=== PATIENT | male | born 1975 | race Two or more races ===

== ENCOUNTER 2023-07-31 13:06 | Outpatient (AMB) | payer MEDICAID, SELFPAY ==
--- NOTE | 2023-07-31 13:07 | A.OFFVIS_ITS ---
Intake Intake Visit Reasons: BPH Intake Note: NEW Patient presents today to established treatment for BPH: Meds- None Allergies to Antibiotic- No Known Allergies Blood Thinner- None Post Void Residual: 0 mL Ophthalmic Aide Required: Yes Ophthalmic Aide Language: Web Site Project Manager Name: THADDEUS Flores/JAVIER VERDIN Information Interpreted: non-clinical & clinical Accompanied by: Self / Same As Patient Allergies No Known Allergies Allergy (Verified 07/31/23 13:47) Medication List - Last Reconciled 07/31/23 by Donovan Field MD atorvastatin 40 mg PO DAILY ezetimibe 10 mg PO DAILY HPI HPI Comments History of Present Illness Details Helder is a 48-year-old Italian-speaking male who is here for evaluation for BPH symptoms. Certified conference interpreter present. AUA BPH symptom score 17/35 Comorbidity-nicotine dependence. The patient complains of nocturia x3, feeling that he has not emptying his bladder well, denies dysuria, Denies, family history of prostate cancer. I have discussed avoiding dietary bladder irritants, including to cut back on caffeine usage Review of consult referral: Labs PSA 05/27/23 ---1.1 ng/mL I have discussed workup to include evaluation of the urinary tract with renal and bladder ultrasound. UA- leukocytes negative, blood 10 Rigoberto Bladder scan PVR 0 mL Plan: Ultrasound kidneys bladder follow-up office cystoscopy. Urine for cytology. Flomax 0.4 mg daily in the evening. [facility] Medical History Enlarged prostate Restless leg Snoring Hypertriglyceridemia Surgical History No pertinent past surgical history Family History Father No family history of cancer Mother No problems noted. Social History Alcohol intake: current Alcohol intake frequency: does not drink Patient Tobacco Use Status: Current someday Tobacco user Questionnaire AUA Symptom Score AUA Incomplete emptying - It does not feel like I empty my bladder all the way.: 5 - Almost always Frequency - I have to go again less than two hours after I finish urinating.: 3 - About half the time Intermittency - I stop and start again several times when I urinate.: 2 - Less than half the time Urgency - It is hard to wait when I have to urinate.: 1 - Less than 1 time in 5 Weak stream - I have a weak urinary stream.: 2 - Less than half the time Straining - I have to push or strain to begin urination.: 1 - Less than 1 time in 5 Nocturia - I get up to urinate after I go to bed until the time I get up in the morning.: 3 times AUA Symptom Score: 17 Quality of life due to urinary symptoms: If you were to spend the rest of your life with your urinary condition the way it is now, how would you feel about that?: Terrible Source: Sonu DAVILA, Guera CUI Jr, O'Judi MP, et al, and the Measurement Committee of the [place] [employer]. The [place] [employer] symptom index for benign prostatic hyperplasia. J Urol. 1992; 148: 5583-7040. Copyright 1992 [place] [employer] Review of Systems Const All systems reviewed & are unremarkable except as noted in HPI and below Reports no additional complaints Eyes Reports no additional complaints ENT Reports no additional complaints Card Denies dyspnea Resp Denies cough and Denies dyspnea GI Reports no additional complaints Musc Reports no additional complaints Skin/Breast Denies rash and Denies unusual bruising Neuro Reports no additional complaints Psych Reports no additional complaints Endo Reports no additional complaints Krishna/Lymph Reports no additional complaints Aller/Immun Reports no additional complaints Physical Exam Const General: healthy appearing, no acute distress and well developed Orientation/consciousness: patient oriented x3 HEENT Head: Yes normocephalic and Yes atraumatic Eyes Conjunctivae: conjunctivae normal Neck Neck: Yes normal visual inspection Chest Chest palpation & inspection: normal inspection of the chest Resp Effort & Inspection: normal respiratory effort Cardio Rate: regular rate GI Inspection: Yes normal to inspection Palpation (GI): Soft to palpation Skin General skin exam: no rashes or lesions noted Neuro General: patient oriented x3 Extrem General: No pedal edema Psych Appearance: grossly normal Affect: normal affect Results AMB Urinalysis, Automated UA Leukoctes 0 Jessy/uL Last Edit by THADDEUS Flores on 07/31/23 14:15 UA Nitrite Negative Last Edit by THADDEUS Flores on 07/31/23 14:15 UA Urobilinogen 0.2 mg/dL Last Edit by THADDEUS Flores on 07/31/23 14:1 5 UA Protein 15 mg/dL Last Edit by THADDEUS Flores on 07/31/23 14:15 UA pH 7.0 Last Edit by THADDEUS Flores on 07/31/23 14:15 UA Blood 10 Rigoberto/uL Last Edit by THADDEUS Flores on 07/31/23 14:15 UA Specific [place] 1.015 Last Edit by THADDEUS Flores on 07/31/23 14: 15 UA Ketone Negative Last Edit by THADDEUS Flores on 07/31/23 14:15 UA Bilirubin 0 mg/dL Last Edit by THADDEUS Flores on 07/31/23 14:15 UA Glucose 0 mg/dL Last Edit by THADDEUS Flores on 07/31/23 14:15 Results Reviewed Results Reviewed: Laboratory Last Values Urine pH (Auto) 7.0 07/31/23 14:14 Specific [place] (Auto) 1.015 07/31/23 14:14 Urine Protein (Auto) 15 mg/dL 07/31/23 14:14 Glucose (UA)(Auto) 0 mg/dL 07/31/23 14:14 Urine Ketones (Auto) Negative 07/31/23 14:14 Urine Blood (Auto) 10 Rigoberto/uL 07/31/23 14:14 Urine Nitrite (Auto) Negative 07/31/23 14:14 Urine Bilirubin (Auto) 0 mg/dL 07/31/23 14:14 Urine Urobilinogen (Auto) 0.2 mg/dL 07/31/23 14:14 Leukocyte Esterase (Auto) 0 Jessy/uL 07/31/23 14:14 Assessment & Plan Assessment & Plan (1) BPH loc w urin obs/LUTS: Code(s): N40.1 - Benign prostatic hyperplasia with lower urinary tract symptoms (2) Microscopic hematuria: Code(s): R31.29 - Other microscopic hematuria (3) Nicotine dependence: Code(s): F17.200 - Nicotine dependence, unspecified, uncomplicated Plan Flomax. Discussed medication side effects retrograde ejaculation, dizziness. Patient has a call if dizziness or any other allergies occur. Renal bladder ultrasound. Follow-up office cystoscopy Urine cytology Orders: Orders AMB Urinalysis Automated Today Z13.9 - Encounter for screening, unspecified AMB Post Void Residual by ultrasound Today N39.8 - Other specified disorders of urinary system US retroperitoneal comp Today N40.1 - Benign prostatic hyperplasia with lower urinary tract symptoms Medications: New tamsulosin (Flomax) 0.4 mg PO BEDTIME 90 caps 1RF Patient Instructions: The patient had an opportunity to ask questions regarding treatment plan. All questions were answered. Laboratory results were discussed and reviewed in detail. No major barriers to understanding were identified. The patient expressed understanding and agreement with the above treatment plan. The patient is aware they should contact our office by phone for worsening of their current condition or the appearance of new symptoms. Compliance is encouraged with any medications and followup testing that is ordered. It is a privilege to be allowed the opportunity to participate in the urologic care of your patient. If you have any questions or concerns regarding treatment for the above conditions please do not hesitate to contact me. The office telephone contact is [phone]. This note is constructed in part using voice recognition software. While every effort has been made to ensure accuracy radiology transcriptionist errors may have been included. Yours sincerely, Donovan Field MD Quality Reporting (2019) Benign Prostatic Hyperplasia ([facility] 771) AUA symptom score: 17 Quality of life due to urinary symptoms: If you were to spend the rest of your life with your urinary condition the way it is now, how would you feel about that?: Terrible Coding Level of Care Code New Pt Level 4 (86872) Diagnoses BPH loc w urin obs/LUTS N40.1 Microscopic hematuria R31.29 Nicotine dependence F17.200
== END 2023-07-31 14:06 | disposition home or self-care (01) ==
PROVIDERS: PCP Pediatrics; Visit Provider Urology
DX: N40.1 Benign prostatic hyperplasia with lower urinary tract symptoms (principal); R31.29 Other microscopic hematuria; F17.200 Nicotine dependence, unspecified, uncomplicated; Z13.9 Encounter for screening, unspecified
CPT/HCPCS: 99204

== ENCOUNTER 2023-07-31 13:06 | Outpatient (REF) | payer OTHER, SELFPAY ==
[2023-07-31 17:00] LABS: Urine Cytology See Pathology rpt
== END 2023-07-31 13:07 | disposition home or self-care (01) ==
LOC: HO.LAB 13:06
PROVIDERS: PCP Pediatrics; Visit Provider Urology
DX: R31.29 Other microscopic hematuria (principal); N40.1 Benign prostatic hyperplasia with lower urinary tract symptoms; F17.200 Nicotine dependence, unspecified, uncomplicated; Z71.6 Tobacco abuse counseling
CPT/HCPCS: 81003; 88112; 99202

== ENCOUNTER 2023-11-14 11:18 | Outpatient (REF) | payer OTHER, SELFPAY ==
--- NOTE | ~2023-11-14 | US_ITS ---
EXAMINATION: US RETROPERITONEAL COMPLETE (RENAL) CLINICAL INFORMATION: Benign prostatic hyperplasia with lower urinary tract symptoms. COMPARISON: None available. TECHNIQUE: Real-time imaging of the kidneys and bladder. FINDINGS: RIGHT KIDNEY: 10.7 x 4.8 x 5.5 cm (SAG x AP x TRV). The kidney is normal in size, contour, and echogenicity. Renal cortical thickness is normal. No calculi or focal parenchymal lesions. No hydronephrosis. LEFT KIDNEY: 10.5 x 5.1 x 4.7 cm (SAG x AP x TRV). The kidney is normal in size, contour, and echogenicity. Renal cortical thickness is normal. No calculi or focal parenchymal lesions. No hydronephrosis. There are echogenic foci at the lower pole, which do not meet formal ultrasound criteria for calculi. BLADDER: Well distended and normal. Bilateral ureteral jets are demonstrated. Prevoid bladder volume is 286 mL. Postvoid bladder volume is 46 mL. The prostate volume is 22.9 mL. US/US retroperitoneal comp IMPRESSION: Unremarkable examination.
== END 2023-11-14 11:19 | disposition home or self-care (01) ==
LOC: HO.US 11:18
PROVIDERS: PCP Pediatrics; Visit Provider Urology
DX: N40.1 Benign prostatic hyperplasia with lower urinary tract symptoms (principal)
CPT/HCPCS: 76770

== ENCOUNTER 2023-11-20 14:11 | Outpatient (AMB) | payer OTHER, SELFPAY ==
--- NOTE | 2023-11-20 14:21 | MHC.OFFVIS ---
Intake Visit Reasons: cysto/US Intake Note: Patient presents today for a CYSTOSCOPY Procedure: Meds: None Allergies to Antibiotic: No Known Allergies Blood Thinner: None Urinalysis test clear for Cysto? Disposable Uro-G HD Cystoscope Cannula: Lot: [id number] Exp: 06/25/2026 Hydrotreater Operator Required: Yes Hydrotreater Operator Language: Golf Ball Winder Name: Luisana Randolph, THADDEUS/JAVIER SPANI Information Interpreted: non-clinical & clinical Spot Machine Operator: Spot Machine Operator Present Accompanied by: Self / Same As Patient Allergies No Known Allergies Allergy (Verified 11/20/23 14:22) Medication List - Last Reconciled 11/20/23 by Donovan Field MD atorvastatin 40 mg PO DAILY ezetimibe 10 mg PO DAILY tamsulosin (Flomax) 0.4 mg PO BEDTIME HPI Comments Details: 11/20/23--Helder is here for office cystoscopy. Certified middle school spanish teacher present. He was last seen on 07/31/23 and tamsulosin was ordered for BPH symptoms, he states medication is helping. He completed renal ultrasound, report is pending. Urine cytology 07/31/2023 was negative for malignant cells. Cystoscopy findings: multi-focal erythematous flattened irregularities. Discussed further evaluation with cysto/bladder biopsies. Consent obtained. Review of chart: 07/31/23--Helder is a 48-year-old Polish-speaking male who is here for evaluation for BPH symptoms. Certified certified court/medical interpreter present. AUA BPH symptom score 17/35. The patient complains of nocturia x3, feeling that he has not emptying his bladder well, denies dysuria, Denies, family history of prostate cancer. Comorbidity-nicotine dependence. I have discussed avoiding dietary bladder irritants, including to cut back on caffeine usage. I have discussed workup to include evaluation of the urinary tract with renal and bladder ultrasound, FU cystoscopy Review of consult referral: Labs PSA 05/27/23 ---1.1 ng/mL. UA- leukocytes negative, blood 10 Rigoberto Bladder scan PVR 0 mL PFSH Medical History Enlarged prostate Restless leg Snoring Hypertriglyceridemia Surgical History Hx of cystoscopy No pertinent past surgical history Family History Father No family history of cancer Mother No problems noted. Social History Alcohol intake: current Alcohol intake frequency: does not drink Patient Tobacco Use Status: Current someday Tobacco user Review of Systems Const All systems reviewed & are unremarkable except as noted in HPI and below Reports no additional complaints Eyes Reports no additional complaints ENT Reports no additional complaints Card Reports no additional complaints Resp Reports no additional complaints GI Reports no additional complaints Reports as per HPI Musc Reports no additional complaints Skin/Breast Reports system reviewed and no additional complaints, except as documented Neuro Reports no additional complaints Psych Reports no additional complaints Endo Reports no additional complaints Krishna/Lymph Reports no additional complaints Aller/Immun Reports no additional complaints Office Procedures Cystoscopy Consent Discussed risk and benefit or proposed procedure with the patient. Information consent for procedure given to the patient. Discussed technical aspects, risks, benefits and alternatives in full. Addressed all of the patient's questions and concerns regarding the procedure. The patient demonstrated knowledge and understanding. They wish to proceed with this procedure. Preparation The patient was prepped in the usual manner. A communications writer was present and in the room. Genitalia was prepped with betadine solution in a sterile manner. Lidocaine Jelly 2% was placed into the urethra and 16Fr flexible Olympus cystoscope was inserted into the meatus after adequate lubrication. Procedure Time out per protocol performed. Bladder Inspection Bladder Inspection: The bladder was inspected in its entirety with utilization retroflexion displaying: Tumor(s): Multifocal erythematous changes noted Trabeculation: NA Mucosal Erthema: Present Orifices: normal shape and position Urethra: normal Cystoscopy findings: prostatic urethra bilobar enlargement, prominent median lobe. Multifocal erythematous changes noted [id number] DISPOSABLE SCOPE URO-G FLEXIBLE SCOPE Procedure code (CPT) selection complete Office Meds lidocaine HCl 2 % mucosal jelly in applicator Performing Provider: Donovan Field MD Performing Location[facility] [place] [facility] Administered by: Alejo Banks LPN on 11/20/23 14:32 Dose Route Admin Location Dispensed Lot Number Expiration Date [facility] Human Resources Talent Manager 10 mL intra-urethral 20 mL naproxen 500 mg tablet Performing Provider: Donovan Field MD Performing Location: [facility] [place] [facility] Administered by: Alejo Banks LPN on 11/20/23 14:32 Dose Route Admin Location Dispensed Lot Number Expiration Date [facility] Human Resources Talent Manager 500 mg PO 1 tab ciprofloxacin HCl 500 mg tablet Performing Provider: Donovan Field MD Performing Location: [facility] [place] [facility] Administered by: Alejo Banks LPN on 11/20/23 14:32 Dose Route Admin Location Dispensed Lot Number Expiration Date [facility] Human Resources Talent Manager 500 mg PO 1 tab Results AMB Urinalysis, Automated UA Leukoctes 0 Jessy/uL Last Edit by THADDEUS Flores on 11/20/23 14:35 UA Nitrite Negative Last Edit by THADDEUS Flores on 11/20/23 14:35 UA Urobilinogen 0.2 mg/dL Last Edit by THADDEUS Flores on 11/20/23 14:35 UA Protein 0 mg/dL Last Edit by THADDEUS Flores on 11/20/23 14:35 UA pH 6.0 Last Edit by THADDEUS Flores on 11/20/23 14:35 UA Blood 25 Rigoberto/uL Last Edit by THADDEUS Flores on 11/20/23 14:35 1+ Luisana Randolph 11/20/23 14:35 UA Specific [place] 1.015 Last Edit by THADDEUS Flores on 11/20/23 14:35 UA Ketone Negative Last Edit by THADDEUS Flores on 11/20/23 14:35 UA Bilirubin 0 mg/dL Last Edit by THADDEUS Flores on 11/20/23 14:35 UA Glucose 0 mg/dL Last Edit by THADDEUS Flores on 11/20/23 14:35 Results Reviewed Results Reviewed: Laboratory Last Values Urine pH (Auto) 6.0 11/20/23 14:23 Specific [place] (Auto) 1.015 11/20/23 14:23 Urine Protein (Auto) 0 mg/dL 11/20/23 14:23 Glucose (UA)(Auto) 0 mg/dL 11/20/23 14:23 Urine Ketones (Auto) Negative 11/20/23 14:23 Urine Blood (Auto) 25 Rigoberto/uL 11/20/23 14:23 Urine Nitrite (Auto) Negative 11/20/23 14:23 Urine Bilirubin (Auto) 0 mg/dL 11/20/23 14:23 Urine Urobilinogen (Auto) 0.2 mg/dL 11/20/23 14:23 Leukocyte Esterase (Auto) 0 Jessy/uL 11/20/23 14:23 Assessment & Plan Assessment & Plan (1) BPH loc w urin obs/LUTS: Code(s): N40.1 - Benign prostatic hyperplasia with lower urinary tract symptoms Category: Medical (2) Microscopic hematuria: Code(s): R31.29 - Other microscopic hematuria Category: Medical (3) Nicotine dependence: Code(s): F17.200 - Nicotine dependence, unspecified, uncomplicated Category: Medical (4) Bladder disorder, unspecified: Code(s): N32.9 - Bladder disorder, unspecified Category: Medical Plan Outpatient Cystoscopy bladder biopsy Orders: Orders AMB Urinalysis Automated Today Z13.9 - Encounter for screening, unspecified AMB Cystoscopy Today F17.200 - Nicotine dependence, unspecified, uncomplicated, N40.1 - Benign prostatic hyperplasia with lower urinary tract symptoms, R31.29 - Other microscopic hematuria Patient Instructions: The patient had an opportunity to ask questions regarding treatment plan. The patient expressed understanding and agreement with the above treatment plan. The patient is aware they should contact our office by phone for worsening of their current condition or the appearance of new symptoms. Compliance is encouraged with any medications and followup testing that is ordered. It is a privilege to be allowed the opportunity to participate in the urologic care of your patient. If you have any questions or concerns regarding treatment for the above conditions please do not hesitate to contact me. The office telephone contact is [phone]. This note is constructed in part using voice recognition software. While every effort has been made to ensure accuracy grove worker errors may have been included. Yours sincerely, Donovan Field MD Coding Level of Care Code Est Pt Level 3 (17841) Diagnoses BPH loc w urin obs/LUTS N40.1 Microscopic hematuria R31.29 Nicotine dependence F17.200 Bladder disorder, unspecified N32.9 CPT Codes Cystoscopy - CPT: 74929-[id number] ([id number])
== END 2023-11-20 15:03 | disposition home or self-care (01) ==
PROVIDERS: PCP Pediatrics; Visit Provider Urology
DX: N40.1 Benign prostatic hyperplasia with lower urinary tract symptoms (principal); R31.29 Other microscopic hematuria; F17.200 Nicotine dependence, unspecified, uncomplicated; N32.9 Bladder disorder, unspecified; Z13.9 Encounter for screening, unspecified
CPT/HCPCS: 52000; 99213

== ENCOUNTER → 2023-11-20 14:11 | Outpatient (BNVA) | payer OTHER, SELFPAY | PROVIDERS: PCP Pediatrics; Visit Provider Urology | DX: R31.29 Other microscopic hematuria (principal); N40.1 Benign prostatic hyperplasia with lower urinary tract symptoms; N13.8 Other obstructive and reflux uropathy; N32.9 Bladder disorder, unspecified; F17.200 Nicotine dependence, unspecified, uncomplicated | CPT/HCPCS: 52000; 81003; 99212 ==

== ENCOUNTER 2023-12-10 07:33 | Day surgery (SDC) | payer OTHER, SELFPAY ==
--- NOTE | 2023-12-09 09:39 | HO.ANESPROP2 ---
Documented by User: Shikha Clemons NP 12/09/23 09:39 HPI - Anesthesia Eval Consult details Narrative: 48yo M for Cystoscopy & Bladder Biopsy with fulguration PMFSH Active Problems Active Problems: All Active Problems Bladder disorder, unspecified (Acute) Nicotine dependence (Acute) Microscopic hematuria (Acute) BPH loc w urin obs/LUTS (Acute) Past Medical History Medical History Enlarged prostate Restless leg Snoring Hypertriglyceridemia Family History Family History Father No family history of cancer Mother No problems noted. Surgical History Surgical History Hx of cystoscopy No pertinent past surgical history Social History Social History Alcohol intake: current Alcohol intake frequency: holidays/special occasions only Patient Tobacco Use Status: Former Tobacco user Are you DNR?: No Advance Directives: No Advance Directives Information Provided: Yes Meds Allergies Allergy/AdvReac Type Severity Reaction Status Date / Time No Known Allergies Allergy Verified 11/20/23 14:22 Home Medications ?Medication ?Instructions ?Recorded ?Confirmed ?Last Taken ?Type atorvastatin 40 mg tablet 40 mg PO DAILY 07/31/23 11/20/23 Unknown History ezetimibe 10 mg tablet 10 mg PO DAILY 07/31/23 11/20/23 Unknown History Assessment and Plan Assessment Anesthesia Assessment: Chart Reviewed Documented by User: Jacklyn Taylor MD 12/10/23 08:17 PMFSH Past Medical History Medical History Enlarged prostate Restless leg Snoring Hypertriglyceridemia Family History Family History Father No family history of cancer Mother No problems noted. Surgical History Surgical History Hx of cystoscopy No pertinent past surgical history History of Problems with Anesthesia: No Social History Social History Alcohol intake: current Alcohol intake frequency: holidays/special occasions only Patient Tobacco Use Status: Former Tobacco user Are you DNR?: No Advance Directives: No Advance Directives Information Provided: Yes Meds Allergies Allergy/AdvReac Type Severity Reaction Status Date / Time No Known Allergies Allergy Verified 11/20/23 14:22 Home Medications ?Medication ?Instructions ?Recorded ?Confirmed ?Last Taken ?Type atorvastatin 40 mg tablet 40 mg PO DAILY 07/31/23 11/20/23 Unknown History ezetimibe 10 mg tablet 10 mg PO DAILY 07/31/23 11/20/23 Unknown History Exam Airway Mallampati Class: III TM Dist: >3cm Neck ROM: Full Loose/Missing/Broken Teeth: No Heart: RRR Lungs: CTA Assessment and Plan Assessment Anesthesia Assessment: Anesthesia Plan Discussed Final Anesthetic Review History of Problems with Anesthesia: No NPO: Yes ASA Class: II Final Preanesthetic Review: Meds/Allgs Chart Reviewed, Consent Obtained/Reviewed and Anes Risks/Benef Reviewed Patient Risk: Low Procedure Risk: Low Anesthetic Plan Anesthetic Plan: GA Disposition: Standard PACU
[2023-12-10] VITALS (7 sets, daily range): BP systolic 97–124; BP diastolic 60–76; PULSE 61–76; RESP 17–18; TEMP 36.1–36.8; O2SAT 94–97; BMI 33.1
[2023-12-10] MEDS: Lactated Ringers 1,000 ML 100 ML IVCONT (08:01)
--- NOTE | 2023-12-10 08:03 | MHC.SHP ---
Pre-Procedural Eval Section A - 24 Hr Update-Section A only Date of Service: 12/10/23 The patient is an INPATIENT: No The patient has been examined within 24 hours of the surgical procedure. The History & Physical has been completed within 30 days and I have reviewed it.: Yes Section B - Complete if H&P > 30 days Chief Complaint: Other microscopic hematuria Allergies: Allergies Allergy/AdvReac Type Severity Reaction Status Date / Time No Known Allergies Allergy Verified 11/20/23 14:22 Plan Diagnosis/Plan: Unchanged I have reviewed the history and physical and performed a pertinent physical examination on my patient. No changes have occurred unless specified. Cystoscopy. Bladder biopsies, Fulguration. Discussed risks to include but not limited to, blood in the urine, burning with urination, urgency. Time Spent With Patient Time: Total time managing care of this patient today ____ minutes.
--- NOTE | 2023-12-10 09:10 | W.PM.OPN ---
Operative Note Operative Note Date of Service: 12/10/23 Narrative: PREOP DIAGNOSIS: Microscopic hematuria, urinary urgency POSTOP DIAGNOSIS: Interstitial cystitis, microscopic hematuria, PROCEDURE: CYSTOSCOPY HYDRODISTENTION Anethesia: General Surgeon: Dr. Donovan Field Indications: Helder is a 48-year-old gentleman who has been evaluated due to microscopic hematuria. He complained of irritative urinary symptoms of urgency. Office cystoscopy erythematous changes noted, urine cytology negative for malignancy. Details of procedure: The patient was brought into the operating room placed on the OR table in supine position. 2 g of Ancef IV. General anesthesia was administered. The patient was repositioned into lithotomy position, prepped and draped in the usual sterile fashion. Time-out was done per protocol. A 22 fr cystoscope was placed transurethrally into the bladder. The bulbous urethra was within normal limits. The prostatic urethra was nonobstructive. The right and left ureteral orifices were visualized. The entire bladder was visualized. There were no suspicious bladder lesions seen. During filling of the bladder there was noted to be glomerulations. After draining the bladder, terminal hematuria was noted, the bladder was then filled with sterile water at 80 cm of water pressure under gravity. The bladder was distended for 2 minutes. Bladder capacity measured 350 mL. Revisualization of the bladder, noted moderate glomerulations on all quadrants of the bladder. No Perez ulcerations noted. The bladder was refilled with sterile water again at 80 cm of water pressure under gravity. The bladder was distended for 4 minutes. The fluid was drained from the bladder and measured 400 mL. The cystoscope was removed. 2% lidocaine urojet was passed transurethrally, 20 mL. The patient was brought out of anesthesia and taken to recovery in stable condition. Complications: None Drains: none
[2023-12-10] MEDS: Phenazopyridine HCL 200 MG TABLET PO (09:37)
[2023-12-10] MEDS: hydrOXYzine HCL 25 MG TABLET PO (09:37)
== END 2023-12-10 10:49 | disposition home or self-care (01) ==
PROVIDERS: PCP Pediatrics; Visit Provider Urology
PROC: (CPT 52260; principal; 2023-12-10 08:50)
DX: N30.11 Interstitial cystitis (chronic) with hematuria (principal); N40.0 Benign prostatic hyperplasia without lower urinary tract symptoms; R31.29 Other microscopic hematuria; E78.1 Pure hyperglyceridemia; Z79.899 Other long term (current) drug therapy; F17.200 Nicotine dependence, unspecified, uncomplicated
CPT/HCPCS: 52260; J0690; J1100; J1885; J2250; J2405; J2704; J3010

== ENCOUNTER → 2023-12-10 07:33 | Outpatient (BNV) | payer OTHER, SELFPAY | PROVIDERS: PCP Pediatrics; Visit Provider Urology | DX: R31.29 Other microscopic hematuria (principal) | CPT/HCPCS: 52260 ==

== ENCOUNTER 2023-12-23 13:45 | Outpatient (AMB) | payer OTHER, SELFPAY ==
--- NOTE | 2023-12-23 14:16 | MHC.OFFVIS ---
Intake Visit Reasons: Bladder biopsy results Intake Note: Patient is present for bladder biopsy results Urology Medication:phenazopyridine,oxycodone-acetaminophen,tamsulosin Antibiotic Allergy:none Blood Thinner:none Electric Lineman Required: No Allergies No Known Allergies Allergy (Verified 12/23/23 14:19) HPI Comments Details: 12/23/2023--s/p cystoscopy hydrodistension 12/10/23-- bladder capacity 400 mL, moderate glomerulations, findings c/w interstitial cystitis. No bladder biopsies indicated. Pt states urinary urgency is improved. Will place on tamsulosin. Review of chart: 11/20/23--Helder is here for office cystoscopy. Certified motor vehicle parts interpreter present. He was last seen on 07/31/23 and tamsulosin was ordered for BPH symptoms, he states medication is helping. He completed renal ultrasound, report is pending. Urine cytology 07/31/2023 was negative for malignant cells. Cystoscopy findings: multi-focal erythematous flattened irregularities. Discussed further evaluation with cysto/bladder biopsies. Consent obtained. 07/31/23--Helder is a 48-year-old Burundian-speaking male who is here for evaluation for BPH symptoms. Certified interpreter present. AUA BPH symptom score 17/35. The patient complains of nocturia x3, feeling that he has not emptying his bladder well, denies dysuria, Denies, family history of prostate cancer. Comorbidity-nicotine dependence. I have discussed avoiding dietary bladder irritants, including to cut back on caffeine usage. I have discussed workup to include evaluation of the urinary tract with renal and bladder ultrasound, FU cystoscopy Review of consult referral: Labs PSA 05/27/23 ---1.1 ng/mL. UA- leukocytes negative, blood 10 Rigoberto Bladder scan PVR 0 mL PFSH Medical History Enlarged prostate Restless leg Snoring Hypertriglyceridemia Surgical History Hx of cystoscopy No pertinent past surgical history Family History Father No family history of cancer Mother No problems noted. Social History Alcohol intake: current Alcohol intake frequency: holidays/special occasions only Patient Tobacco Use Status: Former Tobacco user Review of Systems Const All systems reviewed & are unremarkable except as noted in HPI and below Reports no additional complaints Eyes Reports no additional complaints ENT Reports no additional complaints Card Reports no additional complaints Resp Reports no additional complaints GI Reports no additional complaints Reports as per HPI Musc Reports no additional complaints Skin/Breast Reports system reviewed and no additional complaints, except as documented Neuro Reports no additional complaints Psych Reports no additional complaints Endo Reports no additional complaints Krishna/Lymph Reports no additional complaints Aller/Immun Reports no additional complaints Assessment & Plan Assessment & Plan (1) BPH loc w urin obs/LUTS: Code(s): N40.1 - Benign prostatic hyperplasia with lower urinary tract symptoms Category: Medical (2) Microscopic hematuria: Code(s): R31.29 - Other microscopic hematuria Category: Medical (3) Nicotine dependence: Code(s): F17.200 - Nicotine dependence, unspecified, uncomplicated Category: Medical (4) Bladder disorder, unspecified: Code(s): N32.9 - Bladder disorder, unspecified Category: Medical Plan tamsulosin 0.4 mg daily Patient Instructions: The patient had an opportunity to ask questions regarding treatment plan. The patient expressed understanding and agreement with the above treatment plan. The patient is aware they should contact our office by phone for worsening of their current condition or the appearance of new symptoms. Compliance is encouraged with any medications and followup testing that is ordered. It is a privilege to be allowed the opportunity to participate in the urologic care of your patient. If you have any questions or concerns regarding treatment for the above conditions please do not hesitate to contact me. The office telephone contact is [phone]. This note is constructed in part using voice recognition software. While every effort has been made to ensure accuracy medical program specialist errors may have been included. Yours sincerely, Donovan Field MD Coding Level of Care Code Est Pt Level 4 (18806) Diagnoses BPH loc w urin obs/LUTS N40.1 Microscopic hematuria R31.29 Nicotine dependence F17.200 Bladder disorder, unspecified N32.9
== END 2023-12-23 15:04 | disposition home or self-care (01) ==
PROVIDERS: PCP Pediatrics; Visit Provider Urology
DX: N40.1 Benign prostatic hyperplasia with lower urinary tract symptoms (principal); R31.29 Other microscopic hematuria; F17.200 Nicotine dependence, unspecified, uncomplicated; N32.9 Bladder disorder, unspecified
CPT/HCPCS: 99213; 99499

== ENCOUNTER → 2023-12-23 13:45 | Outpatient (BNVA) | payer OTHER, SELFPAY | PROVIDERS: PCP Pediatrics; Visit Provider Urology | DX: N40.1 Benign prostatic hyperplasia with lower urinary tract symptoms (principal); R31.29 Other microscopic hematuria; F17.200 Nicotine dependence, unspecified, uncomplicated; N32.9 Bladder disorder, unspecified | CPT/HCPCS: 99212 ==

== ENCOUNTER 2024-08-26 13:45 | Outpatient (AMB) | payer OTHER, SELFPAY ==
--- NOTE | 2024-08-26 12:52 | A.OFFVIS_ITS ---
Intake Visit Reasons: 8M f/u BPH Intake Note: Patient is present for 8 month follow up IC Urology Medication:tamsulosin Antibiotic Allergy:none Blood Thinner:none PVR:19ml Marketing Communication Manager Required: Yes Marketing Communication Manager Name: [id number] Information Interpreted: non-clinical & clinical Allergies No Known Allergies Allergy (Verified 08/26/24 13:53) Medication List - Last Reconciled 08/26/24 by Donovan Field MD atorvastatin 40 mg PO DAILY ezetimibe 10 mg PO DAILY tamsulosin (Flomax) 0.4 mg PO BEDTIME HPI Comments Details: 08/26/24-- Helder is a 49-year-old male presenting for follow-up of interstitial cystitis. The condition was evaluated on 12/10/23 with a cystoscopy hydrodistension that showed moderate glomerulations and a bladder capacity of 400 mg. Initially treated post-procedure with pyridium, the patient now utilizes tamsulosin daily. Improvement is reported to be significant, approximately 85% better overall, though some urinary difficulty persists occasionally. The patient adheres to dietary recommendations and remains informed on follow-up PSA testing due to advancing age. Urinary Symptoms Review - Moderate improvement of urinary urgency and frequency symptoms with tamsulosin daily - Occasional difficulty urinating - Significant overall improvement reported as 85% better - Pyridium discontinued following initial procedure - No current nocturnal symptoms Results - Cystoscopy on 12/10/23 showing moderate glomerulations and bladder capacity of 400 mg, consistent with interstitial cystitis 12/23/2023--s/p cystoscopy hydrodistension 12/10/23-- bladder capacity 400 mL, moderate glomerulations, findings c/w interstitial cystitis. No bladder biopsies indicated. Pt states urinary urgency is improved. Will place on tamsulosin. 11/20/23--Helder is here for office cystoscopy. Certified bull riveter present. He was last seen on 07/31/23 and tamsulosin was ordered for BPH symptoms, he states medication is helping. He completed renal ultrasound, report is pending. Urine cytology 07/31/2023 was negative for malignant cells. Cystoscopy findings: multi-focal erythematous flattened irregularities. Discussed further evaluation with cysto/bladder biopsies. Consent obtained. 07/31/23--Helder is a 48-year-old Frisian-speaking male who is here for evaluation for BPH symptoms. Certified renal dietitian present. AUA BPH symptom score 17/35. The patient complains of nocturia x3, feeling that he has not emptying his bladder well, denies dysuria, Denies, family history of prostate cancer. Comorbidity-nicotine dependence. I have discussed avoiding dietary bladder irritants, including to cut back on caffeine usage. I have discussed workup to include evaluation of the urinary tract with renal and bladder ultrasound, FU cystoscopy Review of consult referral: Labs PSA 05/27/23 ---1.1 ng/mL. UA- leukocytes negative, blood 10 Rigoberto Bladder scan PVR 0 mL PFSH Medical History Enlarged prostate Restless leg Snoring Hypertriglyceridemia Surgical History Hx of cystoscopy No pertinent past surgical history Family History Father No family history of cancer Mother No problems noted. Social History Alcohol intake: current Alcohol intake frequency: holidays/special occasions only Patient Tobacco Use Status: Former Tobacco user Review of Systems Const All systems reviewed & are unremarkable except as noted in HPI and below Reports no additional complaints Eyes Reports no additional complaints ENT Reports no additional complaints Card Reports no additional complaints Resp Reports no additional complaints GI Reports no additional complaints Reports as per HPI Musc Reports no additional complaints Skin/Breast Reports system reviewed and no additional complaints, except as documented Neuro Reports no additional complaints Psych Reports no additional complaints Endo Reports no additional complaints Krishna/Lymph Reports no additional complaints Aller/Immun Reports no additional complaints Office Procedures Post Void Residual Post Residual Void Post Void Residual (PVR): 19 [id number] Void Residual by ultrasound Results AMB Urinalysis, Automated UA Leukoctes 0 Jessy/uL Last Edit by Brianda Talamantes on 08/26/24 14:02 UA Nitrite Negative Last Edit by Brianda Talamantes on 08/26/24 14:02 UA Urobilinogen 3.5 mg/dL Last Edit by Brianda Talamantes on 08/26/24 14:02 UA Protein 1 mg/dL Last Edit by Brianda Talamantes on 08/26/24 14:02 UA pH 6.0 Last Edit by Brianda Talamantes on 08/26/24 14:02 UA Blood 25 Rigoberto/uL Last Edit by Brianda Talamantes on 08/26/24 14:02 UA Specific [place] 1.015 Last Edit by Brianda Talamantes on 08/26/24 14:02 UA Ketone Negative Last Edit by Brianda Talamantes on 08/26/24 14:02 UA Bilirubin 0 mg/dL Last Edit by Brianda Talamantes on 08/26/24 14:02 UA Glucose 0 mg/dL Last Edit by Brianda Talamantes on 08/26/24 14:02 Results Reviewed Results Reviewed: Laboratory Last Values Urine pH (Auto) 6.0 08/26/24 15:38 Specific [place] (Auto) 1.015 08/26/24 15:38 Urine Protein (Auto) 1 mg/dL 08/26/24 15:38 Glucose (UA)(Auto) 0 mg/dL 08/26/24 15:38 Urine Ketones (Auto) Negative 08/26/24 15:38 Urine Blood (Auto) 25 Rigoberto/uL 08/26/24 15:38 Urine Nitrite (Auto) Negative 08/26/24 15:38 Urine Bilirubin (Auto) 0 mg/dL 08/26/24 15:38 Urine Urobilinogen (Auto) 3.5 mg/dL 08/26/24 15:38 Leukocyte Esterase (Auto) 0 Jessy/uL 08/26/24 15:38 Assessment & Plan Assessment & Plan (1) BPH loc w urin obs/LUTS: Code(s): N40.1 - Benign prostatic hyperplasia with lower urinary tract symptoms Category: Medical (2) Microscopic hematuria: Code(s): R31.29 - Other microscopic hematuria Category: Medical (3) Nicotine dependence: Code(s): F17.200 - Nicotine dependence, unspecified, uncomplicated Category: Medical (4) Bladder disorder, unspecified: Code(s): N32.9 - Bladder disorder, unspecified Category: Medical (5) Screening PSA (prostate specific antigen): Code(s): Z12.5 - Encounter for screening for malignant neoplasm of prostate Category: Medical Plan Discussion Notes I have discussed with the patient that interstitial cystitis management currently appears effective, with significant symptom relief through the use of tamsulosin. We reviewed the importance of lifestyle modification, including hydration and dietary adjustments, to minimize symptoms. We have also decided to initiate PSA screening as a precautionary measure for prostate health due to the patient's age. The patient is informed of the labs needed two weeks prior to the next follow-up visit in nine months. Plan The continuation of the current regimen with tamsulosin is advised as the patient reports symptom improvement. Dietary recommendations and PSA monitoring for prostate health are discussed as part of ongoing preventive care given patient's age. There are no current plans to change medication regimen. Orders: Orders AMB Post Void Residual by ultrasound Today N40.1 - Benign prostatic hyperplasia with lower urinary tract symptoms AMB Urinalysis Automated Today N40.1 - Benign prostatic hyperplasia with lower urinary tract symptoms PSA,Total (Free>4and<10) 8 Months Z12.5 - Encounter for screening for malignant neoplasm of prostate Medications: Refilled tamsulosin (Flomax) 0.4 mg PO BEDTIME 90 caps 3RF Discontinued oxycodone-acetaminophen 5-325 mg (Percocet) Partial Fill upon patient request. Discontinued Reason: Patient no longer taking 1 tab PO Q6-8H 3 days PRN 8 tabs 0RF pain phenazopyridine (Pyridium) pyridium 200 mg bid for 4 days then use bid prn for persistent urinary burning, urgency, take with food Discontinued Reason: Patient Completed Course 200 mg PO BID PRN 20 tabs 0RF urinary burning Patient Instructions: Patient Instructions - Continue taking tamsulosin daily as prescribed - Maintain adequate hydration and avoid excessive caffeine, sodas, and spicy foods - Arrange for PSA blood work two weeks before the next appointment in nine months - Monitor urinary symptoms and report any increased difficulty - Follow up as scheduled for continuity of care and lab review The patient had an opportunity to ask questions regarding treatment plan. The patient expressed understanding and agreement with the above treatment plan. The patient is aware they should contact our office by phone for worsening of their current condition or the appearance of new symptoms. Compliance is encouraged with any medications and followup testing that is ordered. It is a privilege to be allowed the opportunity to participate in the urologic care of your patient. If you have any questions or concerns regarding treatment for the above conditions please do not hesitate to contact me. The office telephone contact is [phone]. This note is constructed in part using voice recognition software. While every effort has been made to ensure accuracy electronic imager errors may have been included. Yours sincerely, Donovan Field MD Scribe Plan - Not visible on output: Patient was informed and verbally consented to the use of an ambient scribe for clinic note documentation during this visit. Coding Level of Care Code Est Pt Level 4 (41101) Diagnoses BPH loc w urin obs/LUTS N40.1 Microscopic hematuria R31.29 Nicotine dependence F17.200 Bladder disorder, unspecified N32.9 Screening PSA (prostate specific antigen) Z12.5 CPT Codes Post Residual Void - PVR CPT Code: 05548-Vpat Void Residual by ultrasound ([id number])
== END 2024-08-26 14:24 | disposition home or self-care (01) ==
PROVIDERS: PCP Pediatrics; Visit Provider Urology
DX: N40.1 Benign prostatic hyperplasia with lower urinary tract symptoms (principal); R31.29 Other microscopic hematuria; F17.200 Nicotine dependence, unspecified, uncomplicated; N32.9 Bladder disorder, unspecified; Z12.5 Encounter for screening for malignant neoplasm of prostate
CPT/HCPCS: 99214

== ENCOUNTER → 2024-08-26 13:45 | Outpatient (BNVA) | payer OTHER, SELFPAY | PROVIDERS: PCP Pediatrics; Visit Provider Urology | DX: N40.1 Benign prostatic hyperplasia with lower urinary tract symptoms (principal); R31.29 Other microscopic hematuria; N32.9 Bladder disorder, unspecified; F17.200 Nicotine dependence, unspecified, uncomplicated; Z12.5 Encounter for screening for malignant neoplasm of prostate | CPT/HCPCS: 51798; 81003; 99212 ==

== ENCOUNTER 2025-05-14 14:43 | Outpatient (REF) | payer OTHER, SELFPAY ==
--- OUTSIDE RECORDS SUMMARY | 2025-05-11 13:30 | XMS_ITS | Encounter Summary ---
Author Organization [employer] [facility] Address [address] [place] [id number] Phone Care Team Providers Care Chassis Mechanic Name Role Phone Anup Licona MD Primary Care Provider [phone] Reason for Visit * Reason Comments Shortness of Breath Encounter Details Date Type Department Care Team (Late st Contact Info) Description 05/11/2025 1:30 PM EST Office Visit [facility] [address] [place] [id number] John Greer, DO [address] [place] [address] [email or web address] Shortness of breath (Primary Dx); Acute cough; Acute non-recurrent maxillary sinusitis; Thoracic myofascial strain, initial encounter Social History Tobacco Use Types Packs/Day Years Used Date Smoking Tobacco: Never Smokeless Tobacco: Never Alcohol Use Standard Drinks/Week Comments Not Currently 0 (1 standard drink = 0.6 oz pur e alcohol) occasional Child or Family Care Answer Date Record ed 11 Do you have trouble with childcare or the care of a family member? I choose not to answer 06/11/2019 Education Answer Date Recorded Are you interested in more education? Not on ryan e 10/19/2022 Are you concerned about learning? Not on file 10/19/2022 No 10/19/2022 No 10/19/2022 Food Answer Date Recorded Within the past 6 months we worried whether our food would run out before we got money to buy more. Never True 05/12/2025 Within the past 6 months the food we bought just didn't last and we didn't have enough money to get more. Never True Residential Stability Answer Date Recor ded What is your housing situation today? I have adriana sing 05/12/2025 How many times have you move d in the past 12 months? Zero (I did not move) 05/12/2025 Paying for Meds Answer Date Recorded Do you have trouble paying for medicines? No 05/12/2025 Paying Utility Bills Answer Date Record ed Do you have trouble paying your heating or elect ricity bill? No 05/12/2025 Transportation Answer Date Recorded Has the lack of transportati on kept you from medical appointments or from getting medications? No 05/12/2025 Digital Access Answer Date Recorded No 05/12/2025 Yes 05/12/2025 Do you have reliable internet access at home? Ye s 05/12/2025 Do you have a device (e.g., phone, tablet, computer) with a working camera? Yes 05/12/2025 Intimate Partner Violence Answer Date R ecorded Are you denied basic needs s uch as food, clothing, or medical care? No 05/12/2025 In the past 12 months have y ou been in a relationship with a person who hurts, threatens, or tries to control you? No 05/12/2025 Are you denied basic needs s uch as food, clothing, or medical care? No 05/12/2025 In the past 12 months have y ou been in a relationship with a person who hurts, threatens, or tries to control you? No 05/12/2025 Sex and Gender Information Value Date Recorded Sex Assigned at Male 11/27/2019 2:58 PM EDT Legal Sex Male 2:21 PM EST Gender Identity Male 11/27/2019 2:58 PM EDT Sexual Orientation Straight 11/02/2021 11 :31 PM EDT Sexual Orientation Don't know 11/02/2021 11 :31 PM EDT documented as of this encounter Last Filed Vital Signs Vital Sign Reading Time Taken Comments Blood Pressure 94/72 05/11/2025 1:44 PM EST Pulse 103 05/11/2025 1:44 PM EST Temperature 37.1 C (98.8 F) 05/11/2025 1:44 PM EST Respiratory Rate - - Oxygen Saturation 94% 05/11/2025 1:44 PM EST Inhaled Oxygen Concentration - - Weight 83.1 kg (183 lb 3.2 oz) 05/11/2025 1:44 P M EST Height 167 cm (5' 5.75 ) 05/11/2025 1:44 PM EST Body Mass Index 29.8 05/11/2025 1:44 PM EST documented in this encounter Functional Status * Calculated C-SSRS Risk Score (Lifetime/Recent) Answer Date of Assessment Author No Risk Indicated 05/12/2025 3:13 PM EST Rosa Orr RN * [place] Suicide Severity Rating Scale (Screener/Recent Self-Report) Question Answer Date of Assessment Author 1. Wish to be (Past 1 Month) No 3:13 PM Megan Cooper RN 2. Non-Specific Active Suici tere Thoughts (Past 1 Month) No 05/12/2025 3:13 PM Megan Cooper , ROSLYN 6. Suicidal Behavior (Lifetime) No 3:13 PM Megan Cooper RN documented as of this encounter Patient Instructions * Patient Instructions* John Greer DO - 05/11/2025 1:30 PM EST Moist heat face and back Complete antibiotic Use nose spray for 2 weeks Delsym for cough as needed Aleve as needed Follow-up if worsens changes or fails to resolve If not already obtained recommend updated flu and COVID vaccines at your local pharmacy Follow-up if worsens changes or fails to resolve documented in this encounter Progress Notes * John Greer, - 05/11/2025 1:30 PM EST Subjective: History of Present Illness 1/2 weeks of shortness of breath wheezing chest tightness fatigue regularly no fever chills Patient had normal nuclear stress test 2022 Keith #[id number] Helder Ibrahim is a 50 year old male who presents with shortness of breath and cough. He has experienced shortness of breath for two weeks, progressively worsening without significant fever. There is a sensation of throat constriction intermittently, but no sore throat. He experiencesa strong, intense cough primarily in the mornings, with a feeling of wanting to vomit but no actual vomiting. It takes about five minutes to expel a small amount of sputum. Minimal wheezing and rib pain occur, especially with deep breaths. Sinus pain has been present for 15 to 20 days, with occasional nasal congestion requiring manual clearing. He uses Tylenol and acetaminophen for headache relief. He experiences episodes of blurry vision. 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 Objective: Physical Exam HEENT: Ears normal, no infection, congestion, or redness. Sinus right maxillary tenderness on palpation. Throat no erythema or exudate positive postnasal drainage CHEST: No acute distress no respiratory distress mild posterior right-sided chest wall pain on deepinspiration. No rales rhonchi or wheezing appreciated Physical Exam Data Review 1. Shortness of breath (Primary) 2. Acute cough 3. Acute non-recurrent maxillary sinusitis 4. Thoracic myofascial strain, initial encounter Other orders - amoxicillin (AMOXIL) 875 MG tablet Dispense: 20 tablet; Refill: 0 - mometasone (NASONEX) 50 mcg/actuation nasal spray Dispense: 17 g; Refill: 1 Assessment & Plan Acute maxillary sinusitis with associated cough and shortness of breath Acute maxillary sinusitis likely causing throat and lung irritation, leading to cough and shortnessof breath. Differential includes sinus infection as primary cause. - Prescribed antibiotic for 10 days. - Prescribed Nasonex nasal spray for 2 weeks. - Advised use of moist heat on the face. - As needed OTC Delsym for cough. - Instructed to monitor symptoms and report if no improvement or worsening. Strain of thoracic wall muscle secondary to coughing Strain of thoracic wall muscle due to persistent coughing. Pain localized to ribs, exacerbated by deep breathing. - Advised use of heat on the back. - Recommended ibuprofen or Aleve for pain management. Reviewed the PHQ9 questionnaire after the visit. This patient's never had a history of anxiety or depression and no medications for this at the nursing reach out to patient to review the questionnaire. Patient relates that he had difficulty completing the questionnaire and after review it was in error he has no anxiety depression or suicidal ideation or intent no further action needed Return if symptoms worsen or fail to improve. Patient Instructions Moist heat face and back Complete antibiotic Use nose spray for 2 weeks Delsym for cough as needed Aleve as needed Follow-up if worsens changes or fails to resolve If not already obtained recommend updated flu and COVID vaccines at your local pharmacy Follow-up if worsens changes or fails to resolve I obtained verbal consent from the patient or their proxy to record this visit for purposes of producing a draft of the encounter documentation. documented in this encounter Plan of Treatment Not on file documented as of this encounter Visit Diagnoses Diagnosis Shortness of breath- Primary Acute cough Acute non-recurrent maxillary sinusitis Thoracic myofascial strain, initial encounter documented in this encounter Additional Health Concerns Infection Onset Date Last Indicated Resolved Time Resp-Risk 05/12/2025 05/12/2025 Assessment Noted Time PHQ-9 Depression Total Score: 23 025 1:41 PM EST PHQ-2 Depression Total Score: 4 05/11/20 25 1:41 PM EST documented as of this encounter Care Teams Chassis Mechanic Relationship Specialty Start Date End Date Anup Licona MD [address] [place] [address], [address] [place] [address] [email or web address] PCP - General Internal Medicine 06/15/19 documented as of this encounter Additional Source Comments The information contained in this document represents components of the legal health record. It is not the complete legal health record.[facility]
--- OUTSIDE RECORDS SUMMARY | 2025-05-12 16:50 | XMS_ITS | Encounter Summary ---
Author Organization [email or web address] [facility] Address [address] [place] [address] Phone Care Team Providers Care Ceramic Capacitor Processor Name Role Phone Anup Licona MD Primary Care Provider [phone] Reason for Visit * Reason Comments Shortness of Breath Encounter Details Date Type Department Care Team (Late st Contact Info) Description 05/12/2025 4:50 PM EST - 05/12/2025 6:50 PM EST Emergency [facility] [address] [place] [address] Rowan Chilel MD [address] [place] [address] [email or web address] Discharge Disposition: Home or Self Care Social History Tobacco Use Types Packs/Day Years [...] your housing situation today? I have adriana roberts 05/12/2025 How many times have you move [...] Sign Reading Time Taken Comments Blood Pressure 116/79 05/12/2025 3:09 PM EST Pulse 73 05/12/2025 3:09 PM EST Temperature 37.5 C (99.5 F) 05/12/2025 3:09 PM EST Respiratory Rate 16 05/12/2025 3:09 PM EST Oxygen Saturation 97% 05/12/2025 3:09 PM EST Inhaled Oxygen Concentration - - Weight 80.3 kg (177 lb) 05/12/2025 3:09 PM EST Height 166 cm (5' 5.35 ) 05/12/2025 3:09 PM EST Body Mass Index 29.14 05/12/2025 3:09 PM EST documented in this encounter Functional Status * Calculated C-SSRS Risk Score (Lifetime/Recent) Answer Date of Assessment Author No Risk Indicated 05/12/2025 3:13 PM EST Rosa Orr RN * [place] Suicide Severity Rating Scale (Screener/Recent Self-Report) Question Answer Date of Assessment Author 1. Wish to be (Past 1 Month) No 025 3:13 PM EST Megan Orr RN 2. Non-Specific Active Suici tere Thoughts (Past 1 Month) No 05/12/2025 3:13 PM EST Megan Orr RN 6. Suicidal Behavior (Lifetime) No 3:13 PM EST Megan Orr RN documented as of this encounter Discharge Instructions * Discharge Instructions* Rowan Chilel MD - 05/12/2025 5:57 PM EST You were seen in the emergency department for concerns of chest wall pain and some shortness of breath. We did a COVID and flu test which were both negative. We also did an EKG which was within normal limits. We also did a chest x-ray which does not show any rib fractures and does not show any evidence of pneumonia. At this time you are to be discharged. We did provide you with a work note. Please continue to takeTylenol or Motrin alternating them every 6-8 hours as needed for muscle pains. Please continue to monitor your symptoms over the next few days and return for any additional concerns or worsening symptoms including worsening shortness of breath whenever you are walking or movingaround, worsening chest pain, any fluid in your legs, any nausea or vomiting, or any additional concerns. Please otherwise continue to follow-up with your primary care provider. It was a pleasure treating you! documented in this encounter Medications at Time of Discharge amoxicillin (AMOXIL) 875 MG tablet Take 1 tablet (875 mg total) by mouth 2 (two) times a day for 10 days. 20 tablet 05/11/2025 evolocumab (REPATHA) 140 mg/mL PnIj subcutaneous pen injectorIndication s:Mixed hyperlipidemia,Sta tin intolerance Inject 1 mL (140 mg total) under the skin every 14 (fourteen) days. 6 mL 1 08/16/2023 mometasone (NASONEX) 50 mcg/actuation nasal spray 2 sprays by Nasal route daily. 17 g 1 05/11/2025 tamsulosin (FLOMAX) 0.4 mg Cap TOME 1 C PSULA POR V A ORAL AL ACOSTARSE 01/29/2024 documented as of this encounter ED Notes * Megan Orr RN - 05/12/2025 3:07 PM EST he has shortness of breath and a sore throat, especially when he speaks. Also has pain in his ribs.He is alert, ambulatory, speaking in full sentences.he reports now he fell down 2 stairs on Saturday and landed on his chest, he felt much worse on Saturday. Live stitch bonding machine tender used during triage * Rowan Chilel MD - 05/12/2025 2:44 PM EST Chief Complaint Chief Complaint Patient presents with Shortness of Breath History of Present Illness The patient, Helder Ibrahim,is a 50 y.o. male who presents for evaluation of Shortness of Breath Patient is a 50-year-old male with history of hyperlipidemia who presents to the emergency department for concerns of some shortness of breath and chest wall pain. 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 The patient did not hit his head. Thepatient at that time felt okay however was having some chest discomfort with deep breaths. The patient has been taking some Tylenol however presented yesterday to his primary care for concerns shortness of breath with some chills. The patient was given amoxicillin for presume pneumonia but the prescription was not at the pharmacy so he was not able to pick it up. The patient was at work today andwas complaining of continued shortness of breath and chest wall pain for which they recommended he come to the emergency department for further evaluation. The patient denies any leg swelling, is noton any anticoagulation, denies any chest pain, states no history of asthma or COPD and denies any recent travel. Unless otherwise specified, I have reviewed and agree with the triage and nursing notes. ROS A ten point review of systems was negative except what was noted in the HPI. Review of Systems Constitutional: Positive for fatigue. Negative for activity change, appetite change and fever. Respiratory: Positive for shortness of breath. Negative for cough and wheezing. Cardiovascular: Positive for chest pain. Negative for palpitations and leg swelling. Gastrointestinal: Negative for abdominal distention, abdominal pain, constipation, diarrhea, nauseaand vomiting. Genitourinary: Negative for decreased urine volume, dysuria, flank pain and urgency. Musculoskeletal: Negative for gait problem. Skin: Negative for color change, pallor and wound. Neurological: Negative for dizziness, tremors, syncope, light-headedness, numbness and headaches. All other systems reviewed and are negative. Past Medical History Past Medical History: Diagnosis Date Hyperlipidemia Precordial pain 08/31/2022 Past Surgical History Past Surgical History: Procedure Laterality Date COLONOSCOPY N/A 05/22/2023 Performed by Flaquito Moser MD at [facility] ENDOSCOPY NO PAST SURGERIES Home Medications Prior to Admission medications Medication Sig amoxicillin (AMOXIL) 875 MG tablet 875 mg, Oral, 2 times daily evolocumab (REPATHA) 140 mg/mL PnIj subcutaneous pen injector 140 mg, Subcutaneous, Every 14 days Patient not taking: Reported on 05/11/2025 mometasone (NASONEX) 50 mcg/actuation nasal spray 2 sprays, Nasal, Daily tamsulosin (FLOMAX) 0.4 mg Cap TOME 1 C PSULA POR V A ORAL AL ACOSTARSE Allergies Allergies Allergen Reactions Tyler [employer] Denies Social and Family History Social History Tobacco Use Smoking status: Never Smokeless tobacco: Never Substance Use Topics Alcohol use: Not Currently Comment: occasional Social History Substance and Sexual Activity Drug Use Not Currently No family history on file. Physical Exam Vital Signs: ED Triage Vitals [05/12/25 1509] Encounter Vitals Group BP 116/79 Girls Systolic BP Percentile Girls Diastolic BP Percentile Boys Systolic BP Percentile Boys Diastolic BP Percentile Heart Rate 73 Respiratory Rate 16 Temperature 37.5 ??C (99.5 ??F) Temp Source Temporal SpO2 97 % Weight 177 lb Height 5' 5.35 Head Circumference Peak Flow Pain Score Pain Loc Pain Education Exclude from Growth Chart Physical Exam Vitals and nursing note reviewed. Constitutional: General: He is not in acute distress. Appearance: Normal appearance. He is normal weight. He is not ill-appearing or toxic-appearing. HENT: Head: Normocephalic. Mouth/Throat: Mouth: Mucous membranes are moist. Pharynx: Oropharynx is clear. Eyes: Extraocular Movements: Extraocular movements intact. Conjunctiva/sclera: Conjunctivae normal. Pupils: Pupils are equal, round, and reactive to light. Cardiovascular: Rate and Rhythm: Normal rate and regular rhythm. Pulses: Normal pulses. Heart sounds: Normal heart sounds. No murmur heard. Pulmonary: Effort: Pulmonary effort is normal. No respiratory distress. Breath sounds: Normal breath sounds. No wheezing. Chest: Comments: Lower bilateral chest wall tenderness with palpation, without any bruising or crepitus. Abdominal: General: There is no distension. Palpations: Abdomen is soft. Tenderness: There is no abdominal tenderness. There is no guarding or rebound. Musculoskeletal: General: No deformity. Normal range of motion. Cervical back: Normal range of motion. No rigidity or tenderness. Skin: General: Skin is warm and dry. Capillary Refill: Capillary refill takes less than 2 seconds. Coloration: Skin is not pale. Findings: No erythema or rash. Neurological: General: No focal deficit present. Mental Status: He is alert and oriented to person, place, and time. Mental status is at baseline. Cranial Nerves: No cranial nerve deficit. Sensory: No sensory deficit. Motor: No weakness. Laboratory Testing Results for orders placed or performed during the hospital encounter of 05/12/25 SARS-CoV-2, INFLUENZA A/B, PCR Specimen: Nasopharynx, Bilateral; Swab Result Value Ref Range SARS-CoV-2 RNA PCR Not Detected Not Detected Influenza A PCR Not Detected Not Detected Influenza B PCR Not Detected Not Detected Symptomatic Respiratory Virus Testing Panel (ED/IP) Specimen: Nasopharynx, Bilateral; Swab Result Value Ref Range SARS Comment Radiology Testing XR Chest (Results Pending) MDM Assessment and Plan: Patient is a 50-year-old male with history of hyperlipidemia presenting to the emergency departmentfor concerns of shortness of breath and chest wall pain. Upon arrival, the patient is afebrile, nottachycardic or tachypneic, saturating well on room air. Patient is otherwise well-appearing. Patient does have some chest wall tenderness to the left and right lower sides without any bruising or gross deformities or crepitus appreciated. Heart and lung sounds are otherwise clear, abdomen is soft nontender nondistended. Patient is neurologically intact. Differential diagnosis includes but is not limited to rib fracture, pneumonia, pleural effusion, pulmonary edema, ACS. EKG was conducted and showed normal sinus rhythm at a rate of 74. Patient did receive a COVID/influenza which were both negative. Patient did receive a chest x-ray which does not show any evidence ofpneumonia and no evidence of bony abnormalities. Discussed at length with the patient concerning what the patient's biggest concern. The patient just states that he is in continued discomfort with movement and is limited ability to do his daily activities at work. Patient stated that he came here for a work note for reduced workload to assist with his pain. 6:36 PM Patient was advised to continue taking Tylenol and Motrin as needed for his pain. Patient's chest x-ray is otherwise negative. Patient's pain is in the lower chest wall area and is worse with palpation. Low concern for ACS or rib fractures given chest x-ray and atypical symptoms. Patient is hemodynamically stable, currently comfortable and is agreeable to discharge. Patient otherwise given strictreturn precautions and advised PCP follow-up. Category 1: Tests, Studies or Independent Historians: Ore Feeder: A certified medical aide was used during this visit. Category 2 and 3: Independent Interpretation of Tests, Consideration of Tests, or External Discussion of Results: Radiology: Radiology studies were independently interpreted. ECG: EKG studies were independently interpreted. Rate: 74 Rhythm: sinus rhythm Risks of Complications, Morbidity, or Mortality: Risks: Necessity for prescription medication was discussed. Clinical Impressions as of 05/12/25 1836 Dyspnea, unspecified type Chest wall pain Clinical Impression None Disposition: Home Rowan Chilel MD 05/13/25 0231 documented in this encounter Plan of Treatment Not on file documented as of this encounter Procedures Procedure Name Priority Date/Time Associated Diagnosis Comments XR CHEST PA AND LATERAL 2 VIEWS Routine 05/12/2025 3:33 PM EST SARS-COV-2, INFLUENZA A/B, PCR QUINN STAT 05/12/2025 3:17 PM EST COVID PANDEMIC RESPIRATORY VIRAL ORDER (PRO) STAT 05/12/2025 3:17 PM EST ECG 12-LEAD STAT 05/12/2025 2:49 PM EST documented in this encounter Results * XR CHEST PA AND LATERAL 2 VIEWS (05/12/2025 3:33 PM EST) Anatomical Region Laterality Modality Chest Computed Radiogr aphy 05/12/2025 4:20 PM EST Impressions 05/12/2025 5:13 PM EST No acute abnormality. ATTESTATION: I, Megan Flores as teaching physician, have reviewed the images for this case and if necessary edited the report originally created by Kavin Ndiaye. Narrative 05/12/2025 5:13 PM EST XR CHEST PA AND LATERAL 2 VIEWS Referring clinician's provided indication for this examination in Epic: Trauma COMPARISON: XR CHEST PA AND LATERAL 2 VIEWS 2020- FINDINGS: Devices/Tubes/Lines: None. Lungs: No focal consolidation or pulmonary edema. Pleura: No pleural effusion or pneumothorax. Heart/Mediastinum: Normal heart and mediastinum. Bones/Soft Tissues: No significant abnormality. Procedure Note Megan Trammell MD - 05/12/2025 XR CHEST PA AND LATERAL 2 VIEWS Referring clinician's provided indication for this examination in Epic:Trauma COMPARISON: XR CHEST PA AND LATERAL 2 VIEWS 2020- FINDINGS: Devices/Tubes/Lines: None. Lungs: No focal consolidation or pulmonary edema. Pleura: No pleural effusion or pneumothorax. Heart/Mediastinum: Normal heart and mediastinum. Bones/Soft Tissues: No significant abnormality. IMPRESSION: No acute abnormality. ATTESTATION: I, Megan Flores as teaching physician, have reviewed theimages for this case and if necessary edited the report originally createdby Kavin Ndiaye. Ulices Herrera MD IMG XR CHEST Final Resu lt * SARS-CoV-2, INFLUENZA A/B, PCR (05/12/2025 3:17 PM EST) [facility] SARS-CoV-2 RNA PCR Not Detected Not Detected 05/12/2025 3:55 PM EST [facility] Influenza A PCR Not Detected Not Detected 05/12/2025 3:55 PM EST [facility] Influenza B PCR Not Detected Not Detected 05/12/2025 3:55 PM [facility] Swab (Nasopharynx, Bilateral) Non-Blood Collection / Unknown 05/12/2025 3:17 PM EST 05/12/2025 3:21 PM EST Ulices Herrera MD LAB GENERAL ORDERABLES Fin al Result [address] [address] * Symptomatic Respiratory Virus Testing Panel (ED/IP) (05/12/2025 3:17 PM EST) [facility] SARS Comment 05/12/2025 3:39 PM EST [facility] Comment:This test automatica lly orders a COVID-19 PCR and may add Flu, RSV, or other viral tests based on patient clinical factors and site protocols. Results will appear below and separately in chart review when available. Swab (Nasopharynx, Bilateral) Non-Blood Collection / Unknown 05/12/2025 3:17 PM EST 05/12/2025 3:21 PM EST Ulices Herrera MD LAB GENERAL ORDERABLES Fin al Result Performing Organization Address [facility] [address]/[facility] Co de Phone Number [facility] [address] [place] [address] * ECG 12-LEAD (05/12/2025 2:49 PM EST) Ventricular Rate EKG/MIN 76 BPM [facility] Atrial Rate 76 BPM [facility] MD Interval 150 ms [facility] QRS Duration 92 ms [facility] QT Interval 366 ms [facility] QTC Interval 411 ms [facility] P [place] 47 degrees [facility] R Wave [place] 57 degrees [facility] T Wave [place] 42 degrees [facility] 05/12/2025 2:49 PM EST 05/13/2025 3:05 PM EST Narrative [facility] - 05/13/2025 3:05 PM EST Normal sinus rhythm with sinus arrhythmia Normal ECG When compared with ECG of 18-Apr-2021 10:00, No significant change was found Confirmed by Flaquito Will ([id number]) on 05/13/2025 3:05:27 PM Ulices Herrera MD ECG ORDERABLES Final Resu lt Performing Organization Address [facility] [address]/[facility] Co de Phone Number [facility] documented in this encounter Visit Diagnoses Diagnosis Dyspnea, unspecified type- Primary Chest wall pain Painful respiration documented in this encounter Additional Health Concerns Infection Onset Date Last Indicated Resolved Time Resp-Risk 05/12/2025 05/12/2025 Assessment Noted Time PHQ-9 Depression Total Score: 23 025 1:41 PM EST PHQ-2 Depression Total Score: 4 05/11/20 25 1:41 PM EST documented as of this encounter Care Teams Ceramic Capacitor Processor Relationship Specialty Start Date End Date Anup Licona MD [address] [place] [address], [address] [place] [address] PCP - General Internal Medicine 06/15/19 documented as of this encounter Additional Source Comments The information contained in this document represents components of the legal health record. It is not the complete legal health record.[facility]
--- OUTSIDE RECORDS SUMMARY | 2025-05-14 14:58 | XMS_ITS | Encounter Summary ---
Author Organization [employer] [facility] Address [address] [place] [address] Phone Care Team Providers Care Design Architect Name Role Phone Anup Licona MD Primary Care Provider [phone] Encounter Details Date Type Department Care Team (Late st Contact Info) Description 05/31/2023 Telephone [facility] Medicine [address] [place] [address] Chetna Narayan, ROSLYN [address] [place] [address] [email or web address] Social History Tobacco Use Types Packs/Day Years [...] 10/19/2022 No 10/19/2022 Food Answer Date Recorded 02 Within the past 12 months we worried whether our food would run out before we got money to buy more. Sometimes True 019 Food didn't last Not on file 06/11/2019 Paying for Meds Answer Date Recorded 08 Do you have trouble paying for medicines? No 06/11/2019 Paying Utility Bills Answer Date Record ed 07 Do you have trouble paying your heating or el ectricity bill? No 06/11/2019 Transportation Answer Date Recorded 01 Has the lack of transport ation kept you from medical appointments or from getting medications? Yes 06/11/2019 Digital Access Answer Date Recorded No 11/14/2022 No 11/14/2022 Reliable internet access at home? Not on file 11/14/2022 Device with a working camera? Not on file Sex and Gender Information Value Date Recorded Sex Assigned at Male 11/27/2019 2:58 PM EDT Legal Sex Male 2:21 PM EST Gender Identity Male 11/27/2019 2:58 PM EDT Sexual Orientation Straight 11/02/2021 11 :31 PM EDT Sexual Orientation Don't know 11/02/2021 11 :31 PM EDT documented as of this encounter Plan of Treatment Not on file documented as of this encounter Visit Diagnoses Not on filedocumented in this encounter Additional Health Concerns Infection Onset Date Last Indicated Resolved Time Resp-Risk 05/12/2025 05/12/2025 Assessment Noted Time PHQ-2 Depression Total Score: 0 02/21/20 23 1:19 PM EDT documented as of this encounter Care Teams Design Architect Relationship Specialty Start Date End Date Anup Licona MD [address] [place] [address], [address] [place] [id number] [email or web address] PCP - General Internal Medicine 06/15/19 documented as of this encounter Additional Source Comments The information contained in this document represents components of the legal health record. It is not the complete legal health record.[facility]
--- OUTSIDE RECORDS SUMMARY | 2025-05-14 14:58 | XMS_ITS | Encounter Summary ---
Author Organization [employer] [facility] Address [address] [place] [address] Phone Care Team Providers Care Bread Icer Name Role Phone Anup Licona MD Primary Care Provider [phone] Anup Licona MD Unavailable [phone] Encounter Details Date Type Department Care Team (Late st Contact Info) Description 11/27/2019 Procedure Pass [facility], Ct Scan - [address] [address] Social History Tobacco Use Types Packs/Day Years Used Date Smoking Tobacco: Never Smokeless Tobacco: Never Alcohol Use Standard Drinks/Week Comments Not Currently 0 (1 standard drink = 0.6 oz pur e alcohol) Child or Family Care Answer Date Record ed 11 Do you have trouble with childcare or the care of a family member? I choose not to answer 06/11/2019 Education Answer Date Recorded 10 Are you interested in mor e education for yourself related to: Learning the [place] language? Completing high school, earning a high school equivalency, or applying to college? Developing job, technical, or parenting skills? Yes 06/11/2019 Are you concerned about learning? Not on file 06/11/2019 Not on file 06/11/2019 Not on file 06/11/2019 Food Answer Date Recorded 02 Within the [...] appointments or from getting medications? Yes 06/11/2019 Sex and Gender Information Value Date Recorded [...] Last Indicated Resolved Time Resp-Risk 05/12/2025 05/12/2025 documented as of this encounter Care Teams Bread Icer Relationship Specialty Start Date End Date Anup Licona MD [address] [place] [address], [address] [place] [address] PCP - General Internal Medicine 06/15/19 Anup Licona MD [address] [place] [address], [address] [place] [address] Insurance Assigned Provider 12/28/19 03/02/23 documented as of this encounter Additional Source Comments The information contained in this document represents components of the legal health record. It is not the complete legal health record.[facility]
--- OUTSIDE RECORDS SUMMARY | 2025-05-14 14:58 | XMS_ITS | Encounter Summary ---
Author Organization [employer] [facility] Address [address] [place] [address] Phone Care Team Providers Care Director Of Global Sales Name Role Phone Anup Licona MD Primary Care Provider [phone] Anup Licona MD Unavailable [phone] Encounter Details Date Type Department Care Team (Late st Contact Info) Description 06/09/2021 Procedure Pass [facility] Endoscopy Admitting Dept Virtual Department [address] [place] [address] Social History Tobacco Use Types Packs/Day Years [...] education for yourself related to: Learning the [place] language? Completing high school, earning a high [...] documented as of this encounter Care Teams Director Of Global Sales Relationship Specialty Start Date End Date Anup Licona MD [address] [place] [address], [address] [place] [address] [email or web address] PCP - General Internal Medicine 06/15/19 Anup Licona MD [address] [place] [address], [address] [place] [address] Insurance Assigned Provider 12/28/19 03/02/23 documented as of this encounter Additional Source Comments The information contained in this document represents components of the legal health record. It is not the complete legal health record.[facility]
--- OUTSIDE RECORDS SUMMARY | 2025-05-14 14:58 | XMS_ITS | Encounter Summary ---
Author Organization [facility] Address [address] [place] [address] Phone Care Team Providers Care Motel Maid Name Role Phone Anup Licona MD Primary Care Provider [phone] Anup Licona MD Unavailable [phone] Encounter Details Date Type Department Care Team (Late st Contact Info) Description 09/05/2022 Ancillary Orders [facility] [address] [place], [place] [id number] Anup Licona MD [address] [facility], [address] [place] [address] [email or web address] Social History Tobacco Use [...] education for yourself related to: Learning the Chinese language? Completing high school, earning a high [...] documented as of this encounter Care Teams Motel Maid Relationship Specialty Start Date End Date Anup Licona MD [address] [place] [address], [address] [place] [address] PCP - General Internal Medicine 06/15/19 Anup Licona MD [address] [place] [address], [address] [place] [address] Insurance Assigned Provider 12/28/19 03/02/23 documented as of this encounter Additional Source Comments The information contained in this document represents components of the legal health record. It is not the complete legal health record.Located Within [facility]
--- OUTSIDE RECORDS SUMMARY | 2025-05-14 14:58 | XMS_ITS | Encounter Summary ---
Author Organization [employer] [facility] Address [address] [place] [id number] Phone Care Team Providers Care Brokerage Office Manager Name Role Phone Anup Licona MD Primary Care Provider [phone] Anup Licona MD Unavailable [phone] Reason for Visit * Reason Onset Date Comments Chest Pain 07/16/2022 Encounter Details Date Type Department Care Team (Late st Contact Info) Description 07/16/2022 Nurse Triage [facility] [address] [place] [address] Dante Bellamy, RN [address] [place] [phone] [email or web address] Chest Pain Social History Tobacco Use Types Packs/Day Years [...] education for yourself related to: Learning the Danish language? Completing high school, earning a high [...] PM EDT documented as of this encounter Progress Notes * Dante Bellamy, RN - 07/16/2022 3:29 PM EST Nurse Triage Encounter Note Reason for Triage Helder Ibrahim contacted office for Chest Pain Call Disposition See Today In Office Patient/caregiver understands and will follow disposition: Patient/caregiver understands and will follow care advice: Yes, Plans To Follow Advice Disposition Comments: Protocols used: Chest Ujnd-Twnmu-Ss Care Advice Given Care Advice Patient/Caregiver understands and will follow care advice?: Yes, plans to follow advice CHECK WITH PCP CALL BACK IF: * Chest pain increases in frequency, duration or severity * Chest pain lasts over 5 minutes * Chest pains persist over 3 days * Difficulty breathing or unusual sweating occurs * Fever over 100.4 F (38.0 C) * You become worse Patient will call back with additional questions or if symptoms change or worsen Dante Bellamy RN Reason for Disposition and Assessment Reason for Disposition Chest pain(s) lasting a few seconds persists > 3 days Answer Assessment - Initial Assessment Questions 1. LOCATION: Where does it hurt? Right chest and rib pain. Denies SOB, lightheadedness/dizziness, fever, wheezing, or any breathing difficulty 2. RADIATION: Does the pain go anywhere else? (e.g., into neck, jaw, arms, back) No 3. ONSET: When did the chest pain begin? (Minutes, hours or days) 15 days ago 4. PATTERN Does the pain come and go, or has it been constant since it started? Does it get worse with exertion? Constant, starts mild in the morning and progresses during the day. Has been to the ED a few times in the last year or so for this. 5. DURATION: How long does it last (e.g., seconds, minutes, hours) Patient states the pain lasts all day, starts mild in the morning and progresses during the day. 6. SEVERITY: How bad is the pain? (e.g., Scale 1-10; mild, moderate, or severe) - MILD (1-3): doesn't interfere with normal activities - MODERATE (4-7): interferes with normal activities or awakens from sleep - SEVERE (8-10): excruciating pain, unable to do any normal activities 7/10, tylenol helps a little bit 7. CARDIAC RISK FACTORS: Do you have any history of heart problems or risk factors for heart disease? (e.g., angina, prior heart attack; diabetes, high blood pressure, high cholesterol, smoker, or strong family history of heart disease) No pertinent medical history listed in chart 8. PULMONARY RISK FACTORS: Do you have any history of lung disease? (e.g., blood clots in lung, asthma, emphysema, control pills) No pertinent medical history listed in chart 9. CAUSE: What do you think is causing the chest pain? Unsure, has been to the ED a few times in the last year or so 10. OTHER SYMPTOMS: Do you have any other symptoms? (e.g., dizziness, nausea, vomiting, sweating,fever, difficulty breathing, cough) None Protocols used: CHEST [id number] Patient's notified that if patient starts to have sharp chest pain, pain that radiates to the arm, shoulder or jaw, shortness of breath, or dizziness/lightheadedness that this would be considered a medical emergency and she would need to get him to ED immediately to rule out IA. OV scheduled with PCP Saturday07/20/22 at 4pm as patient only wants to see PCP and can only come after 4. Offered SDV today with Julia, only wants to see PCP. documented in this encounter Plan of Treatment Not on file documented as of this encounter Visit Diagnoses Not on filedocumented in this encounter Additional Health Concerns Infection Onset Date Last Indicated Resolved Time Resp-Risk 05/12/2025 05/12/2025 documented as of this encounter Care Teams Brokerage Office Manager Relationship Specialty Start Date End Date Anup Licona MD [address] [place] [address], [address] [place] [address] PCP - General Internal Medicine 06/15/19 Anup Licona MD [address] [place] [address], [address] [place] [address] Insurance Assigned Provider 12/28/19 03/02/23 documented as of this encounter Additional Source Comments The information contained in this document represents components of the legal health record. It is not the complete legal health record.[facility]
--- OUTSIDE RECORDS SUMMARY | 2025-05-14 14:58 | XMS_ITS | Encounter Summary ---
Author Organization [facility] Address [address] [place] [phone] Phone Care Team Providers Care Supervisor Silvering Department Name Role Phone Anup Licona MD Primary Care Provider [phone] Encounter Details Date Type Department Care Team (Late st Contact Info) Description 05/22/2023 Procedure Pass [facility]oscopy Admitting Dept Virtual Department [address] [place] [address] Social History Tobacco Use Types Packs/Day Years [...] documented as of this encounter Care Teams Supervisor Silvering Department Relationship Specialty Start Date End Date Anup Licona MD [address] [place] [address], [address] [place] [address] [email or web address] PCP - General Internal Medicine 06/15/19 documented as of this encounter Additional Source Comments The information contained in this document represents components of the legal health record. It is not the complete legal health record.[facility]
--- OUTSIDE RECORDS SUMMARY | 2025-05-14 14:58 | XMS_ITS | Clinical Summary ---
Author Organization [facility] Address [address] [place] [address] Phone Care Team Providers Care House Decorator Name Role Phone Kezia Hall MD Primary Care Provider Allergies Active Allergy Reactions Criticality Noted Date Comments [place] Oil 11/27/2019 Denies Medications evolocumab (REPATHA) 140 mg/mL PnIj subcutaneous pen injectorIndicati ons:Mixed hyperlipidemia,S tatin intolerance Inject 1 mL (140 mg total) under the skin every 14 (fourteen) days. 6 mL 1 4 Active Additional Information Patient not taking.Reported on 05/11/2025 tamsulosin (FLOMAX) 0.4 mg Cap TOME 1 C PSULA POR V A ORAL AL ACOSTARSE 4 Active amoxicillin (AMOXIL) 875 MG tablet Take 1 tablet (875 mg total) by mouth 2 (two) times a day for 10 days. 20 tablet 5 05/21/20 25 Active mometasone (NASONEX) 50 mcg/actuation nasal spray 2 sprays by Nasal route daily. 17 g 1 5 Active Active Problems Problem Noted Date Diagnosed Date Shortness of breath 05/10/2025 Other insomnia 04/01/2024 Dream enactment behavior 07/24/2023 Restless legs 02/21/2023 Assessment & Plan (02/21/2023 7:30 AM EDT): May be due to sleep apnea. Recommend home sleep test. Referral to sleep medicine advised. Has the office will arrange for consultation with the patient directly. Snoring 02/21/2023 Assessment & Plan (05/29/2023 12:47 PM EST): Needs sleep med consult. Assessment & Plan (02/21/2023 7:30 AM EDT): May be secondary to sleep apnea. Sleep referral placed. Enlarged prostate 08/31/2022 Assessment & Plan (05/29/2023 12:47 PM EST): Encouraged to call urology for consult. Letter to be sent. Assessment & Plan (02/21/2023 7:30 AM EDT): Please advise urology consultation. I have replaced the referral again. I recommend that he call Dr. Sutherland's office directly to be seen at [facility] location. Assessment & Plan (09/02/2022 9:53 PM EDT): Will require re-evaluation following cardiac workup. Hypertriglyceridemia 08/31/2022 Assessment & Plan (05/29/2023 12:46 PM EST): Trial of PCSK9 inhibitor-will request PA, inadequate improvement on statin and fibrate. Assessment & Plan (02/21/2023 7:31 AM EDT): Not at target on Zetia. We will trial atorvastatin 40 mg daily. Side effects discussed. Recheck lipids 6 weeks. Lifestyle changes discussed. Limit saturated fats, greasy foods, carbs. Assessment & Plan (11/01/2022 12:58 PM EDT): Started on ezetimibe 10 mg daily. Patient agrees. Work on diet. Reassess lipids in 6 weeks. Recheck LFTs at that time as well. Assessment & Plan (08/31/2022 3:51 PM EST): Dietary changes, handout given. Reassess after stress test, repeat labs. Resolved Problems Problem Noted Date Diagnosed Date Resolved Date Precordial pain 08/31/2022 02/21/2023 Assessment & Plan (08/31/2022 3:50 PM EST): nondiagnostic ETT, nuc stress planned. followup after results. Encounters Date Type Department Care Team Description 05/13/[address] [place] [address] Chetna Narayan, ROSLYN Patient questionaire 05/12/2025 4:50 PM EST - 05/12/2025 6:50 PM EST Emergency [facility] [address] [place] [address] Rowan Chilel MD Discharge Disposition: Home or Self Care 05/12/[address] [place] [address] Kezia Hall MD Forms & Paperwork (Work note) 05/11/2025 1:30 PM EST Office Visit [address] [place] [address] John Greer DO Shortness of breath (Primary Dx); Acute cough; Acute non-recurrent maxillary sinusitis; Thoracic myofascial strain, initial encounter 05/10/2025 Nurse Triage [address] [place] [address] Kezia Hall MD Triage (Breathing difficulty for a week - this is new) from Last 3 Months Immunizations Immunization Administration Dates Next Due COVID-19 (Pre-04/15) Pfizer Vaccine, mRNA, PF 07/08/2021,11/17/2020 Hepatitis B Adult 04/13/2019 Hepatitis B, unspecified formulation 11/06/2018 Influenza Quadrivalent Preservative Free IM 06/26,03/28/2020,04/13/2019 Influenza Recombinant Nils valent Preservative Free IM 07/27/2019 Influenza Trivalent MDCK Pre servative Free IM 03/24/2024 MMR 03/02/2019,11/06/2018 Td (adult) 5 Lf Tetanus Toxo id, PF, Adsorbed 03/02/2019 Tdap 07/27/2019,11/06/2018 Social History Tobacco Use Types Packs/Day Years Used Date Smoking Tobacco: Never Smokeless Tobacco: Never Tobacco Cessation:Counseling Given: Not Answered Alcohol Use Standard Drinks/Week Comments Not Currently [...] Don't know 11/02/2021 11 :31 PM EDT Last Filed Vital Signs Vital Sign Reading [...] Mass Index 29.14 05/12/2025 3:09 PM EST Plan of Treatment Health Maintenance Due Date Last Done Comments HEPATITIS C SCREENING 1995 HIV ONE-TIME SCREENING (18-65 YEARS) 1995 COLOGUARD 2022 FIT TEST 2022 FOBT 2022 SIGMOIDOSCOPY 2022 VIRTUAL COLONOSCOPY 2022 INFLUENZA VACCINE (#1) 2025 , 07/24/2023, 03/28/2020, Additional history exists COVID-19 VACCINE ( season) 2025 07/08/2021, 12/21/2020, 11/17/2020 REPEAT PHQ 06/10/2025 05/11/2025, 05/11/2025 DEPRESSION SCREENING 05/11/2026 05/11/2025, 05/11/20 25 SCREENING FOR DIABETES 05/27/2026 05/27/2023, 2022 LIPID PANEL 05/27/2028 05/27/2023, 12/09/2022, 02/13/2023, Additional history exists Adult Td,Tdap Booster 07/27/2029 07/27/2019 , 03/02/2019, 11/06/2018 COLONOSCOPY 05/22/2033 05/22/2023 COLORECTAL CANCER SCREENING 05/22/2033 SMOKING STATUS SCREENING (Once After 26 Yrs) Completed 05/12/2025 HEPATITIS A VACCINES Aged Out No long er eligible based on patient's age to complete this topic HIB VACCINES Aged Out No longer eligi ble based on patient's age to complete this topic MENINGOCOCCAL VACCINES (ACWY) Aged Out No longer eligible based on patient's age to complete this topic MENINGOCOCCAL VACCINES (B) Aged Out N o longer eligible based on patient's age to complete this topic PNEUMOCOCCAL VACCINES (0-49 years) Aged Out No longer eligible based on patient's age to complete this topic Medical Devices Not on file Procedures Procedure Name Priority Date/Time Associated Diagnosis Comments XR CHEST PA AND LATERAL 2 VIEWS Routine 05/12/2025 3:33 PM EST SARS-COV-2, INFLUENZA A/B, PCR QUINN STAT 05/12/2025 3:17 PM EST COVID PANDEMIC RESPIRATORY VIRAL ORDER (PRO) STAT 05/12/2025 3:17 PM EST ECG 12-LEAD STAT 05/12/2025 2:49 PM EST LIPID PANEL Routine 05/27/2023 8:12 AM EST Hypertriglyceridemi a ENDOSCOPY, COLON 05/22/2023 9:03 AM EST from Last 3 Months or Most Recently Relevant to Health Maintenance Results * XR CHEST PA AND LATERAL 2 VIEWS (05/12/2025 3:33 PM EST) Anatomical Region Laterality Modality Chest Computed Radiogr aphy 05/12/2025 4:20 PM EST Impressions 05/12/2025 5:13 PM EST No acute abnormality. ATTESTATION: Megan Clark as teaching physician, have reviewed the images for this case and if necessary edited the report originally created by Kavin Ndiaye. Narrative 05/12/2025 5:13 PM EST XR CHEST PA AND LATERAL 2 VIEWS Referring clinician's provided indication for this examination in [facility]: Trauma COMPARISON: XR CHEST PA AND LATERAL 2 VIEWS FINDINGS: Devices/Tubes/Lines: None. Lungs: No focal consolidation or pulmonary edema. Pleura: No pleural effusion or pneumothorax. Heart/Mediastinum: Normal heart and mediastinum. Bones/Soft Tissues: No significant abnormality. Procedure Note Megan Trammell MD - 05/12/2025 XR CHEST PA AND LATERAL 2 VIEWS Referring clinician's provided indication for this examination in [facility]:Trauma COMPARISON: XR CHEST PA AND LATERAL 2 VIEWS FINDINGS: Devices/Tubes/Lines: None. Lungs: No focal consolidation or pulmonary edema. Pleura: No pleural effusion or pneumothorax. Heart/Mediastinum: Normal heart and mediastinum. Bones/Soft Tissues: No significant abnormality. IMPRESSION: No acute abnormality. ATTESTATION: Megan Clark as teaching physician, have reviewed theimages for this case and if necessary edited the report originally createdby Kavin Ndiaye. Ulices Herrera MD IMG XR CHEST Final Resu lt * SARS-CoV-2, INFLUENZA A/B, PCR (05/12/2025 3:17 PM EST) SARS-CoV-2 RNA PCR Not Detected Not Detected 05/12/2025 3:55 PM EST [facility] Influenza A PCR Not Detected Not Detected 05/12/2025 3:55 PM EST [facility] Influenza B PCR Not Detected Not Detected 05/12/2025 3:55 PM [facility] Swab (Nasopharynx, Bilateral) Non-Blood Collection / Unknown 05/12/2025 3:17 PM EST 05/12/2025 3:21 PM EST Ulices Herrera MD LAB GENERAL ORDERABLES Fin al Result Performing Organization Address [facility] de Phone Number [address] [address] * Symptomatic Respiratory Virus Testing Panel (ED/IP) (05/12/2025 3:17 PM EST) Pathologist [facility] SARS Comment 05/12/2025 3:39 PM EST [facility] Comment:This test automatica lly orders a COVID-19 PCR and may add Flu, RSV, or other viral tests based on patient clinical factors and site protocols. Results will appear below and separately in chart review when available. Swab (Nasopharynx, Bilateral) Non-Blood Collection / Unknown 05/12/2025 3:17 PM EST 05/12/2025 3:21 PM EST Ulices Herrera MD LAB GENERAL ORDERABLES Fin al Result Performing Organization Address [facility] de Phone Number [address] [address] * ECG 12-LEAD (05/12/2025 2:49 PM EST) Ventricular Rate EKG/MIN 76 BPM [facility] Atrial Rate 76 BPM [facility] ID Interval 150 ms [facility] QRS Duration 92 ms [facility] QT Interval 366 ms [facility] QTC Interval 411 ms [facility] P [place] 47 degrees [facility] R Wave [place] 57 degrees [facility] T Wave [place] 42 degrees [facility] 05/12/2025 2:49 PM EST 05/13/2025 3:05 PM EST Narrative [facility] - 05/13/2025 3:05 PM EST Normal sinus rhythm with sinus arrhythmia Normal ECG When compared with ECG of 18-Apr-2021 10:00, No significant change was found Confirmed by Nelly Will ([id number]) on 05/13/2025 3:05:27 PM us Ulices Herrera MD ECG ORDERABLES Final Resu lt [facility] * (ABNORMAL) Lipid panel (05/27/2023 8:12 AM EST) HDL 31 mg/dL [facility] Comment: Interpretation <40 mg/dL: Low HDL cholesterol (major risk factor for CHD) Greater than or equal to 60 mg/dL: High HDL cholesterol ( negative risk factor for CHD) HDL - cholesterol is affected by a number of factors, e.g. smoking, excerise, hormones, sex and age. CHOLESTEROL 194 0 - 240 mg/dL [facility] TRIGLYCERIDES 413(H) 30 - 160 mg/dL [facility] LDL NOT CALCULATED 50 - 129 mg/dL [facility] Comment: Unable to calculate due to elevated TRIG of greater than 400. A measured LDL will be performed. CARDIAC RISK RATIO 6.3(H) 3.4 - 5.0 [facility] Blood 05/27/2023 8:12 AM EST 05/27/2023 8:14 AM EST us Kezia Hall MD LAB BLOOD BKR ORDERABLES Final Result Performing Organization Address [facility] Co de Phone Number [facility] [address] [place] [address] * ENDOSCOPY, COLON (05/22/2023 9:03 AM EST) Narrative Transcriptions Nelly Moser MD - 05/22/2023 9:03 AM EST [facility] Patient Name: Helder Ibrahim Attending MD:: NELLY MOSER MD, Procedure Date: 05/22/2023 9:03 AM Date of : 1975 Age: 48 Admit Type: Outpatient Gender: Male Room: [facility] Referring MD: Not Required Referring, KEZIA HALL MD Exam Type: Colonoscopy Indications: Screening for colorectal malignant neoplasm, Thisis the patient's first colonoscopy Medications: Monitored Anesthesia Care Procedure: Informed consent was obtained from the patientafter discussion of the indications, limitations, alternatives, benefits, and risks of the procedure. Risks specifically discussed include but are not limited to medication reactions, missed lesions, bleeding, perforation, or the need for emergent surgery. Throughout the procedure, the patient's blood pressure, pulse, end-tidal CO2, and oxygensaturations were monitored continuously. The Olympus adult variable colonoscope [id number] #5 was introduced through the anus and advanced to the terminal ileum, with identification of theappendiceal orifice and IC valve. The colonoscopy was performed without difficulty. The patient tolerated the procedure well. The quality of the bowelpreparation was good. The terminal ileum, ileocecal valve, appendiceal orifice, and rectum werephotographed. Complications: No immediate complications. Estimated blood loss:None. Findings: The terminal ileum appeared normal. Examination of the right colon was repeated in retroflexion and again in NBI. Retroflexion wasalso performed in the rectum. The entire examined colon appeared normal. Impression: - The examined portion of the ileum was normal. - The entire examined colon is normal. - No specimens collected. Recommendation: - Patient has a contact number available for emergencies. The signs and symptoms of potential delayed complications were discussed with thepatient. Return to normal activities tomorrow. Written discharge instructions were provided to thepatient. - Repeat colonoscopy in 10 years for screening purposes. Nelly Moser NELLY MOSER MD 05/22/2023 9:31:20 AM This report has been signed electronically. Number of Addenda: 0 Note Initiated On: 05/22/2023 9:03 AM Procedure Code(s): --- Professional --- 02591, Colonoscopy, flexible; diagnostic, including collection of specimen(s) by brushing or washing, when performed (separateprocedure) --- Technical --- 23755, Colonoscopy, flexible; diagnostic, including collection of specimen(s) by brushing or washing, when performed (separateprocedure) CPT copyright 2021 [employer]. All rights reserved. The codes documented in this report are preliminary and upon maori physiotherapist reviewmay be revised to meet current compliance requirements. Procedure Date: 05/22/2023 9:03:[address] [place] [id number] [place] Not Required Referring GI PROCEDURE ORDERABLES F inal Result from Last 3 Months or Most Recently Relevant to Health Maintenance Additional Health Concerns Infection Onset Date Last Indicated Resp-Risk 05/12/2025 05/12/2025 Insurance WELLSENSE NON NSPG PCP [place] WELLSENSE NON NSPG PCP [place] CONNECTORCARE WELLSENSE NON NSPG PCP [place] CONNECTORCARE WELLSENSE NON NSPG PCP S[place]VER [employer]ITY CONNECTORCARE AVONDALEENSE NON NSPG PCP S[place] CL[place] CONNECTORCARE AVONDALEENSE NON NSPG PCP [place] [facility] CONNECTORCARE Care Teams House Decorator Relationship Specialty Start Date End Date Kezia Hall MD [address] [place] [address], [address] [place] [address] [email or web address] PCP - General Internal Medicine 06/15/19 Additional Source Comments The information contained in this document represents components of the legal health record. It is not the complete legal health record.[facility]
--- OUTSIDE RECORDS SUMMARY | 2025-05-14 14:58 | XMS_ITS | Encounter Summary ---
Author Organization [facility] Address [address] [place] [address] Phone Care Team Providers Care Shade Cloth Finisher Name Role Phone Anup Licona MD Primary Care Provider [phone] Reason for Visit * Reason Onset Date Comments Triage 05/10/2025 Breathing diffic ulty for a week - this is new Encounter Details Date Type Department Care Team (Late st Contact Info) Description 05/10/2025 Nurse Triage [address] [place] [address] Anup Licona MD [address] [facility] [place] [address] [email or web address] Triage (Breathing difficulty for a week - this is new) Social History Tobacco Use Types Packs/Day Years [...] with a working camera? Not on file Intimate Partner Violence Answer Date R ecorded Are you denied basic needs s uch as food, clothing, or medical care? No 07/04/2023 In the past 12 months have y ou been in a relationship with a person who hurts, threatens, or tries to control you? No 07/04/2023 Are you denied basic needs s uch as food, clothing, or medical care? No 07/04/2023 In the past 12 months have y ou been in a relationship with a person who hurts, threatens, or tries to control you? No 07/04/2023 Sex and Gender Information Value Date Recorded Sex Assigned at Male 11/27/2019 2:58 PM EDT Legal Sex Male 2:21 PM EST Gender Identity Male 11/27/2019 2:58 PM EDT Sexual Orientation Straight 11/02/2021 11 :31 PM EDT Sexual Orientation Don't know 11/02/2021 11 :31 PM EDT documented as of this encounter Progress Notes * Laurita Tapia, ROSLYN - 05/10/2025 2:30 PM EST Tony, son states that Helder has been having breathing problems for 1.5 weeks. States that he feels tight in the chest and gets very short of breath with exertion and is very fatigued. He has somewheezing. No leg swelling, cough or fever. Scheduled with Dr. Greer tomorrow at 1:30 p.m. Reason for Disposition MILD longstanding difficulty breathing (e.g., speaks in phrases, SOB even at rest, pulse 100-120) and SAME as normal Protocols used: Breathing [id number] Nurse Triage Encounter Note Reason for Triage Tony contacted office for Triage Breathing difficulty for a week - this is new Call Disposition See Within 2 Weeks In Office Disposition Comments: Patient/caregiver understands and will follow disposition: Initial Symptom Screening and Assessment Care Advice Patient/Caregiver understands and will follow care advice?: Yes, plans to follow advice Breathing [id number] Laurita Tapia RN Mon May 10, 2025 02:43 PM Disposition and First Aid SEE IN OFFICE WITHIN 2 WEEKS: * You need to be examined. * Let me give you an appointment. GENERAL CARE ADVICE FOR BREATHING DIFFICULTY: * Find position of greatest comfort. For most patients the best position is semi-upright (e.g., sitting up in a comfortable chair or lying back against pillows). * Elevate head of bed (e.g., use pillows or place blocks under bed). * Avoid smoke or fume exposure. * Create a draft (e.g., use a fan directed at the face, or open a window). * Keep room temperature slightly on the cool side. * Limit activities or space activities apart during the day. Prioritize activities. * Use a humidifier. CALL BACK IF: * Severe difficulty breathing occurs * Fever more than 100.4 F (38.0 C) * You become worse Patient will call back with additional questions or if symptoms change or worsen Laurita Tapia RN Reason for Disposition and Assessment * Adam Quintanilla - 05/10/2025 2:26 PM EST Complete the Following for ALL Patient Symptoms [facility] Red [place] Yellow Green Tool Call Back Number: (& caller's name if not the patient) (son) [phone] Description of Symptoms: What symptoms are you experiencing? Breathing difficulty for a week - this is new When did the symptoms start? 1 week Has this happened before? No - symptoms started on 1 week ago 1) Enter the Reason for Call (TRIAGE) & [facility] Comment (COLOR + Symptom) (Ex: TRIAGE - YELLOW, tick bite ) 2) Select the color-based designation below before taking next steps & documenting the outcome Red Call Designation & Outcome Red Symptom(s): Triage (Breathing difficulty for a week - this is new) Call Warm Transferred & TE Routed High Priority to Nurse: yes DO NOT DISCONNECT THE CALL Warm transfer live call to the Triage Team & Route TE HIGH Priority to the Individual Performing Triage documented in this encounter Plan of Treatment Not on file documented as of this encounter Visit Diagnoses Not on filedocumented in this encounter Additional Health Concerns Assessment Noted Time PHQ-2 Depression Total Score: 0 02/21/20 23 1:19 PM EDT documented as of this encounter Care Teams Shade Cloth Finisher Relationship Specialty Start Date End Date Anup Licona MD [address] [place] [address], [address] [place] [address] [email or web address] PCP - General Internal Medicine 06/15/19 documented as of this encounter Additional Source Comments The information contained in this document represents components of the legal health record. It is not the complete legal health record.[facility]
--- OUTSIDE RECORDS SUMMARY | 2025-05-14 14:59 | XMS_ITS | Encounter Summary ---
Author Organization [facility] Address [address] [place] [address] Phone Care Team Providers Care Financial Accountant Name Role Phone Anup Licona MD Primary Care Provider [phone] Reason for Visit * Reason Onset Date Comments Forms & Paperwork 05/12/2025 Work note Encounter Details Date Type Department Care Team (Late st Contact Info) Description 05/12/20[address] [facility] [address] [place] [address] Anup Licona MD [address] [facility] [place] [address] [email or web address] Forms & Paperwork (Work note) Social History Tobacco Use Types Packs/Day Years [...] PM EDT documented as of this encounter Functional Status * Calculated C-SSRS Risk Score (Lifetime/Recent) Answer Date of Assessment Author No Risk Indicated 05/12/2025 3:13 PM Rosa Cooper RN * [place] Suicide Severity Rating Scale (Screener/Recent Self-Report) Question Answer Date of Assessment Author 1. Wish to be (Past 1 Month) No 025 3:13 PM Megan Cooper RN 2. Non-Specific Active Suici tere Thoughts (Past 1 Month) No 05/12/2025 3:13 PM Megan Cooper RN 6. Suicidal Behavior (Lifetime) No 3:13 PM Megan Cooper RN documented as of this encounter Progress Notes * John Greer DO - 05/13/2025 8:16 AM EST Letter signed * Kirk Mims - 05/12/2025 4:24 PM EST Work excuse pended for your review as you are the provider who saw the pt. * Desiree Montero - 05/12/2025 2:33 PM EST Pt son called checking on the status of the work note.Please contact and advise Central Support National Sales Manager (Please do not reply to this user; this inbox is not monitored.) Thank you. * Tierra Hidalgo - 05/12/2025 1:37 PM EST Pt's son called in with pt requesting a note to excuse pt from work. Caller stated pt was seen in office 05/11 and was told by provider he should rest for 4-5 days. Caller is requesting the note excuse pt from work starting today 05/12. Caller is requesting this be uploaded the the patient gateway as soon as possible. Please contact pt's son Tony with any questions or concerns. Please contact and advise. Central Support National Sales Manager (Please do not reply to this user; this inbox is not monitored.) Thank you. documented in this encounter Plan of Treatment [...] documented as of this encounter Care Teams Financial Accountant Relationship Specialty Start Date End Date Anup Licona MD [address] [place] [address], [address] [place] [address] [email or web address] PCP - General Internal Medicine 06/15/19 documented as of this encounter Additional Source Comments The information contained in this document represents components of the legal health record. It is not the complete legal health record.[facility]
--- OUTSIDE RECORDS SUMMARY | 2025-05-14 14:59 | XMS_ITS | Encounter Summary ---
Author Organization [facility] Address [address] [place] [address] Phone Care Team Providers Care Splitter Machine Name Role Phone Anup Licona MD Primary Care Provider [phone] Anup Licona MD Unavailable [phone] Reason for Referral * MRI/CAT Scan - Closed Specialty Diagnoses / Procedures Referred By Contac t Referred To Contact Radiology Diagnoses Precordial pain Procedures NC Stress Result for Nuclear Stress Test Anup Licona MD Phone: tel: fax: mailto: Referral ID Status Reason Start Date Expiration Date Visits Re quested Visits Authorized [id number] Closed 09/05/2022 09/05/2023 1 1 Encounter Details Date Type Department Care Team (Late st Contact Info) Description 09/05/2022 Ancillary Orders Non-Invasive Cardiology [address] [place], [place] [id number] Anup Licona MD [address] [facility] [place] [address] Precordial pain Social History Tobacco Use Types Packs/Day Years [...] education for yourself related to: Learning the Greek language? Completing high school, earning a high [...] on file documented as of this encounter Results * NC Stress Result for Nuclear Stress Test (09/05/2022 10:21 AM EDT) Max BP Systolic 128 mmHg [facility] Max BP Diastolic 80 mmHg [facility] Max HR 114 BPM [facility] Resting HR 63 BPM [facility] Resting BP Systolic 115 mmHg [facility] Resting BP Diastolic 72 mmHg [facility] Peak METS 1.0 METS [facility] Peak HR 113 BPM [facility] Anatomical Region Laterality Modality Heart Other 09/05/2022 9:52 AM EDT 09/05/2022 10:20 AM EDT Narrative 09/05/2022 3:08 PM EDT Response to Stress The patient exercised for minutes seconds, achieving 1.0 METS at peak exercise. Baseline blood pressure was 115/72 mmHg, and baseline heart rate was 63 bpm. The patient achieved a peak heart rate of 113 bpm, which is% of their maximum predicted heart rate. REPORT - 0.4 mg Regadenoson (lexiscan) given IV push over 10 seconds as per protocol immediately followed by injection of Tc99m Sestamibi by Martina nuclear medical technologist. Pharmacologic testing was done because pt did not tolerate treadmill recently at office. 1. EKG - Baseline EKG showed normal sinus rhythm. No ischemic EKG changes noted after injection of lexiscan. 2. SYMPTOMS - Pt reported mild chest discomfort at baseline which resolved after injection of Lexiscan. 3. PHYSIOLOGY - Resting HR was 65. After Lexiscan injection, HR 114 4. ARRHYTHMIAS - none Conclusion - no ischemic EKG changes noted with pharmacologic testing. Nuclear images pending and will be reported separately. See attached stress report for full details. Chivo Lorenz INSPECTOR FINAL ASSEMBLY CONVEYOR LINE with Dr. Will . us Anup Licona MD CV NM CARDIAC Final Result documented in this encounter Visit Diagnoses Diagnosis Precordial pain Precordial pain documented in this encounter Additional Health Concerns Infection Onset Date Last Indicated Resolved Time Resp-Risk 05/12/2025 05/12/2025 documented as of this encounter Care Teams Splitter Machine Relationship Specialty Start Date End Date Anup Licona MD [address] [place] [address], [address] [place] [address] PCP - General Internal Medicine 06/15/19 Anup Licona MD [address] [place] [address], [address] [place] [address] Insurance Assigned Provider 12/28/19 03/02/23 documented as of this encounter Additional Source Comments The information contained in this document represents components of the legal health record. It is not the complete legal health record.[facility]
--- OUTSIDE RECORDS SUMMARY | 2025-05-14 14:59 | XMS_ITS | Encounter Summary ---
Author Organization [facility] Address [address] [place] [id number] Phone Care Team Providers Care Syrup Filterer Name Role Phone Anup Licona MD Primary Care Provider [phone] Reason for Visit * Reason Onset Date Comments Patient questionaire 05/13/2025 Encounter Details Date Type Department Care Team (Late st Contact Info) Description 05/13/2025 Telephone [facility] [address] [place] [address] Chetna Narayan, RN [address] [place] [address] [email or web address] Patient questionaire Social History Tobacco Use Types Packs/Day Years [...] of this encounter Progress Notes * John Greer, - 05/13/2025 11:16 AM EST Noted and updated the office visit note to reflect above * Chetna Narayan, ROSLYN - 05/13/2025 10:39 AM EST Images from the original note were not included. [employer] Teacher ID: [id number] Patient notified of instructions as per provider to confirm patient questionnaire responses were correct or incorrect with a possible language barrier as he does not have a history of depression or anxiety. Verbalizes understanding and agreement. States I am going to be honest with you. It was my first time I checked off this form on a tablet. His responds are in error. He does not feel depressed or anxious. He denies SI and HI thoughts. Sent to provider to review. FW: Postive Self Harm Response Received: Today John Greer DO [facility] Rn Unfortunately did not see this test results until today. Record review shows patient does not have a history of depression or on any medications for anxietyor depression. Please check in with patient regarding his responses he is a Cambodian speaker and when to clarify that there is not a language issue contributing to his responses Over the LAST 2 WEEKS, how often have you been bothered by any of the following problems? Little interest or pleasure in doing things Several days Feeling down, depressed, or hopeless Nearly every day Abnormal PROMs Patient Health Questionnaire Screening Score (PHQ-2) (range: 0 - 6) 4 (Positive Depression Screen) Abnormal Myc Proms Phq Questions 3-9 Only (Alerts Provider) Question 05/11/2025 1:41 PM EST - Filed by Patient Over the LAST 2 WEEKS, how often have you been bothered by any of the following problems? Trouble falling or staying asleep, or sleeping too much Nearly every day Abnormal Feeling tired or having little energy Nearly every day Abnormal Poor appetite or overeating Nearly every day Abnormal Feeling bad about yourself - or that you are a failure or have let yourself or your family down Nearly every day Abnormal Trouble concentrating on things, such as reading the newspaper or watching television Nearly every day Abnormal Moving or speaking so slowly that other people could have noticed? Or the opposite - being so fidgety or restless that you have been moving around a lot more than usual Nearly every day Abnormal Thoughts that you would be better off or of hurting yourself in some way Several days Abnormal PROMs Patient Health Questionnaire Total Score (PHQ-9) (range: 0 - 27) 23 (Severe depression) Abnormal documented in this encounter Plan of Treatment [...] documented as of this encounter Care Teams Syrup Filterer Relationship Specialty Start Date End Date Anup Licona MD [address] [place] [address], [address] [place] [address] [email or web address] PCP - General Internal Medicine 06/15/19 documented as of this encounter Additional Source Comments The information contained in this document represents components of the legal health record. It is not the complete legal health record.[facility]
[2025-05-14 16:12] LABS: PSA,Total (Free>4and<10) 0.94 ng/mL (0.00-4.00)
== END 2025-05-14 14:44 | disposition home or self-care (01) ==
LOC: HO.LAB 14:43
PROVIDERS: Visit Provider Urology
DX: Z12.5 Encounter for screening for malignant neoplasm of prostate (principal)
CPT/HCPCS: 36415; 84153

== ENCOUNTER 2025-05-27 12:59 | Outpatient (AMB) | payer OTHER, SELFPAY ==
--- NOTE | 2025-05-27 13:33 | MHC.OFFVIS ---
Intake Visit Reasons: 9m/PSA(set(UA+PVR) Intake Note: Patient is present for a 9m follow up with PSA 05/14 Total PSA:0.94 Urology Medication:Tamsulosin Antibiotic Allergy:None Blood Thinner:None PVR:261ml Porter Marina Required: Yes Porter Marina Name: [id number] Information Interpreted: non-clinical & clinical Allergies No Known Allergies Allergy (Verified 05/27/25 13:34) Medication List - Last Reconciled 05/27/25 by Donovan Field MD atorvastatin 40 mg PO DAILY ezetimibe 10 mg PO DAILY tamsulosin (Flomax) 0.4 mg PO BEDTIME HPI Comments Details: 05/27/25--radha lynn is a 50-year-old male diagnosed with interstitial cystitis he is here for follow-up had PSA screening 05/14/2025 PSA was 0.94. History of Present Illness The patient is a 50 year old male presenting for a follow-up visit for interstitial cystitis. He reports that his symptoms of interstitial cystitis have been improving every month. He is currently taking tamsulosin for this condition. The patient notes that his symptoms worsen when he drinks coffee and is working on avoiding caffeine and spicy foods. His recent PSA screening from last month was normal with a result of 0.94. Results - Labs: PSA level was 0.94 on 05/14, which is a normal result. Plan 1. Interstitial Cystitis - The patient's symptoms are improving, and he will continue taking tamsulosin, with a prescription renewal provided. - He was counseled to avoid bladder irritants such as caffeine and spicy foods. - Plan is to continue monitoring with a follow-up visit in one year. - He was advised to contact the nurse if he experiences any issues in the interim. 08/26/24-- Helder is a 49-year-old male presenting for follow-up of interstitial cystitis. The condition was evaluated on 12/10/23 with a cystoscopy hydrodistension that showed moderate glomerulations and a bladder capacity of 400 mg. Initially treated post-procedure with pyridium, the patient now utilizes tamsulosin daily. Improvement is reported to be significant, approximately 85% better overall, though some urinary difficulty persists occasionally. The patient adheres to dietary recommendations and remains informed on follow-up PSA testing due to advancing age. Urinary Symptoms Review - Moderate improvement of urinary urgency and frequency symptoms with tamsulosin daily - Occasional difficulty urinating - Significant overall improvement reported as 85% better - Pyridium discontinued following initial procedure - No current nocturnal symptoms Results - Cystoscopy on 12/10/23 showing moderate glomerulations and bladder capacity of 400 mg, consistent with interstitial cystitis 12/23/2023--s/p cystoscopy hydrodistension 12/10/23-- bladder capacity 400 mL, moderate glomerulations, findings c/w interstitial cystitis. No bladder biopsies indicated. Pt states urinary urgency is improved. Will place on tamsulosin. 11/20/23--Helder is here for office cystoscopy. Certified hat and cap drying room attendant present. He was last seen on 07/31/23 and tamsulosin was ordered for BPH symptoms, he states medication is helping. He completed renal ultrasound, report is pending. Urine cytology 07/31/2023 was negative for malignant cells. Cystoscopy findings: multi-focal erythematous flattened irregularities. Discussed further evaluation with cysto/bladder biopsies. Consent obtained. 07/31/23--Helder is a 48-year-old Korean-speaking male who is here for evaluation for BPH symptoms. Certified elderly companion present. AUA BPH symptom score 17/35. The patient complains of nocturia x3, feeling that he has not emptying his bladder well, denies dysuria, Denies, family history of prostate cancer. Comorbidity-nicotine dependence. I have discussed avoiding dietary bladder irritants, including to cut back on caffeine usage. I have discussed workup to include evaluation of the urinary tract with renal and bladder ultrasound, FU cystoscopy Review of consult referral: Labs PSA 05/27/23 ---1.1 ng/mL. UA- leukocytes negative, blood 10 Rigoberto Bladder scan PVR 0 mL PFSH Medical History Enlarged prostate Restless leg Snoring Hypertriglyceridemia Surgical History Hx of cystoscopy No pertinent past surgical history Family History Father No family history of cancer Mother No problems noted. Social History Alcohol intake: current Alcohol intake frequency: holidays/special occasions only Patient Tobacco Use Status: Former Tobacco user Office Procedures Post Void Residual Post Residual Void Post Void Residual (PVR): 261 [id number] Void Residual by ultrasound Results AMB Urinalysis, Automated UA Leukoctes 0 Jessy/uL Last Edit by Brianda Talamantes on 05/27/25 15:33 UA Nitrite Negative Last Edit by Brianda Talamantes on 05/27/25 15:33 UA Urobilinogen 0.2 mg/dL Last Edit by Brianda Talamantes on 05/27/25 15:33 UA Protein 0 mg/dL Last Edit by Brianda Talamantes on 05/27/25 15:33 UA pH 6.0 Last Edit by Brianda Talamantes on 05/27/25 15:33 UA Blood 25 Rigoberto/uL Last Edit by Brianda Talamantes on 05/27/25 15:33 UA Specific [place] 1.015 Last Edit by Brianda Talamantes on 05/27/25 15:33 UA Ketone Negative Last Edit by Brianda Talamantes on 05/27/25 15:33 UA Bilirubin 0 mg/dL Last Edit by Brianda Talamantes on 05/27/25 15:33 UA Glucose 0 mg/dL Last Edit by Brianda Talamantes on 05/27/25 15:33 Assessment & Plan Assessment & Plan Orders: Orders AMB Urinalysis Automated Today Z13.9 - Encounter for screening, unspecified AMB Post Void Residual by ultrasound Today N40.1 - Benign prostatic hyperplasia with lower urinary tract symptoms Medications: Refilled tamsulosin (Flomax) 0.4 mg PO BEDTIME 90 caps 3RF Coding CPT Codes Post Residual Void - PVR CPT Code: 26339-Fezf Void Residual by ultrasound ([id number])
== END 2025-05-27 13:54 | disposition home or self-care (01) ==
LOC: HO.HUSH 13:00
PROVIDERS: PCP Pediatrics; Visit Provider Urology
DX: Z13.9 Encounter for screening, unspecified (principal)

== ENCOUNTER → 2025-05-27 12:59 | Outpatient (BNVA) | payer OTHER, SELFPAY | PROVIDERS: PCP Pediatrics; Visit Provider Urology | DX: N40.1 Benign prostatic hyperplasia with lower urinary tract symptoms (principal); N13.8 Other obstructive and reflux uropathy; N30.11 Interstitial cystitis (chronic) with hematuria; N32.9 Bladder disorder, unspecified; F17.200 Nicotine dependence, unspecified, uncomplicated; Z79.899 Other long term (current) drug therapy | CPT/HCPCS: 51798; 81003; 99212 ==